=== PATIENT | female | born 1960 | race Caucasian/White ===

== ENCOUNTER 2021-11-25 07:52 | Outpatient (CLI) | payer MEDICAID, SELFPAY ==
[2021-11-25 10:24] LABS: Basophils Absolute Auto 0.02 K/uL (0.00-0.30); Basophils Percent Auto 0.3 % (0.0-3.0); Eosinophils Absolute Auto 0.02 K/uL (0.00-0.50); Eosinophils Percent Auto 0.3 % (0.0-7.0); Hemoglobin* 9.3 gm/dL (12.0-16.0); Immature Granulocytes Abs Auto 0.02 K/uL (0.00-0.30); Lymphocytes Percent Auto 9.8 % (20-44); Mean Corpuscular HGB Conc 32 gm/dL (32-36); Mean Corpuscular Hemoglobin 32 pg (26-34); Mean Corpuscular Volume 99 fL (80-100); Monocytes Percent Auto 8.9 % (0.0-11.0); Neutrophils Percent Auto 80.4 % (42.0-72.0); Platelet Count* 374 K/uL (140-440); RDW Coefficient of Variation % 13.4 % (11.5-15.5); Red Blood Count 2.93 m/uL (4.00-5.20); White Blood Count* 7.87 K/uL (4.50-11.00)
[2021-11-25 10:28] LABS: Slide Review Reflex No
[2021-11-25 10:37] LABS: Hemoglobin A1C* 5.41 % (0-5.6)
[2021-11-25 10:47] LABS: Lactate* 1.1 mmol/L (0.5-1.9)
[2021-11-25 11:02] LABS: Chloride* 101 mmol/L (96-114); Potassium* 3.8 mmol/L (3.6-5.1); Sodium* 136 mmol/L (135-149)
[2021-11-25 11:04] LABS: Creatinine* 0.8 mg/dL (0.5-1.5); Estimated Glomerular Filt Rate 83 ml/min
[2021-11-25 11:05] LABS: Blood Urea Nitrogen* 16 mg/dL (7-30); Calcium* 10.5 mg/dL (8.4-10.6); Carbon Dioxide* 25 mmol/L (20-32); Glucose* 115 mg/dL (60-115)
[2021-11-25 11:08] LABS: C Reactive Protein* 8.4 mg/dL (0.5-1.0)
[2021-11-26 22:44] LABS: Prealbumin 12.6 mg/dL (20.0-40.0)
[2021-11-28 06:58] LABS: Zinc, Serum/Plasma 58.1 ug/dL (60.0-120.0)
== END 2021-11-25 07:53 | disposition home or self-care (01) ==
LOC: WOUND 07:55
PROVIDERS: Visit Provider Nurse Practitioner Family
DX: L02.31 Cutaneous abscess of buttock (principal); L02.415 Cutaneous abscess of right lower limb
CPT/HCPCS: 11043; 11046; 36415; 72193; 80048; 82728; 83036; 83605; 84134; 84630; 85025; 86140; 87070; 87186; 99213; Q9967

== ENCOUNTER 2021-11-26 09:15 | Day surgery (SDC) | payer MEDICAID, SELFPAY ==
[2021-11-26] VITALS (26 sets, daily range): BP systolic 106–141; BP diastolic 57–90; PULSE 79–99; RESP 14–20; TEMP 36.3–36.8; O2SAT 95–100; BMI 43.1
[2021-11-26] MEDS: SODIUM CHLORIDE 0.9 % (FLUSH) 10 ML SYRINGE IVF (09:50)
[2021-11-26] MEDS: LACTATED RINGERS 1000 ML 1,000 ML 100 ML IV ×2 (09:52→13:37)
[2021-11-26] MEDS: CLINDAMYCIN 900 MG/6 ML VIAL IVPB (11:10)
[2021-11-26] MEDS: BUPIVACAINE LIPOSOME 133 MG/10 ML INJ INFILTRATI (12:23)
--- NOTE | 2021-11-26 12:50 | W.ANESCHARGE ---
Anesthesia Charges Start Date/Time Anesthesia Start Date: 11/26/21 Anesthesia Start Time: 11:03 Stop Date/Time Anesthesia Stop Date: 11/26/21 Anesthesia Stop Time: 12:51 Summary Emergency: No
--- NOTE | 2021-11-26 12:52 | W.ANESCHARGE ---
Anesthesia Charges Start Date/Time Anesthesia Start Date: 11/26/21 Anesthesia Start Time: 11:03 Stop Date/Time Anesthesia Stop Date: 11/26/21 Anesthesia Stop Time: 12:51 Summary Emergency: No
[2021-11-26] MEDS: fentaNYL 100 MCG/2 ML inj 50 MCG IVP ×2 (12:55→13:12)
[2021-11-26] MEDS: HYDROmorphone 0.5 mg/0.5 ml inj IVP ×2 (12:57→14:42)
--- NOTE | 2021-11-26 12:58 | P.GSOP_ITS ---
Operative Note Date of procedure: 11/26/21 Type of Procedure: 1. Right hip/buttocks wound exploration. 2. Removal of retained sponges x2. 3. Excisional debridement of subcutaneous fat 28 x 15 x 5 cm. 4. Partial wound closure. 5. VAC VIA placement. Procedure Description: After discussing the risks and benefits of the procedure, the patient signed informed consent.? The operative site was marked and the patient was brought to the operating room and placed on the operating table in supine position.? Care was taken to pad the patient's pressure points.??Spinal anesthesia was administered. Patient was then sedated by Anesthesia.? The operative site was t hen prepped and draped in the usual sterile fashion.? A time-out was then performed. The chronic wound opening in the right buttocks was explored bluntly with a finger and the skin overlying the entire tunnel extending from the right buttocks to the right hip wound was opened with cautery. The skin was incised with cautery and subcutaneous fat was then divided with cautery as well. Two gauze sponges were removed from the center of the tunnel. Pictures were taken and placed into the patient's chart. The gauze sponges had appearance of 4 x 4 gauze and not Ray-Shankar surgical sponges. The entire wound tract was then sharply debrided with a curette and cautery. The area of debridement was measuring 28 cm x 4 cm wide x 5 cm deep. Majority of debrided tissue was hypergranulation tissue. There was no evidence of an abscess or purulence once the retained sponges were removed. Debridement was carried down to the muscle fascia which appeared to be normal with good blood supply. The tunnel itself was deep to the skin and 3 cm of subcutaneous fat. The right buttocks and right hip skin openings were then debrided with cautery down to bleeding fat in order to remove some of the firm scar tissue. The wound was then irrigated with normal saline. Exparel was injected into subcutaneous fat and muscle fascia. The incision was then partially closed with 2-0 nylon mattress sutures leaving the 2 original skin openings and the central skin opening for better access to the wound tunnel. This created 3 separate wound openings. Vac sponge was then used to pack the 3 skin openings. Three separate VAC sponges were placed into 3 separate wounds. Adhesive plastic was then placed over the VAC sponges and with suction was seen at the sponges. All counts were correct in the end of the case. Patient tolerated this procedure well and was transferred to PACU in stable condition. ? Findings: Two retained gauze sponges were removed from the middle of the tunnel. The entire tunnel was opened and debrided. The tunnel was then partially closed creating through separate wound openings. Anesthesia: MAC and spinal Surgeon: Radha Feldman MD Estimated blood loss (mL): 25 Condition: stable Disposition: PACU
--- NOTE | 2021-11-26 13:22 | SUR.PHASEI ---
PT CAME TO PACU IN SIGNIFICANT PAIN, WOUND VAC INTACT , BUTTOCK SITE INTACT, NO DRAINAGE NOTED PT REPOSITIONED ON LEFT SIDE OFF BUTTOCK AREA ICE APPLIED TO SITE AND PILLOWS SUPPORTING PT IV PAIN MEDS GIVEN PER ORDER PT FINALLY RESTING AT THIS TIME
[2021-11-26] MEDS: HYDROCODONE-ACETAMIN 5-325 MG 1 TAB PO ×2 (17:54→20:48)
--- NOTE | 2021-11-26 18:55 | PC.NURSE ---
End of shift: Patient pleasant and cooperative, arrived to the floor at 1450. Patient vitally stable, lungs clear, BS WNL, IV running 75 of LR in right hand. Patient has rated pain at most 8/10 and low 6/10, 0.5 morphine given once, and 1 tab of norco given once. Patient tolerating regular diet, and drinking fluids, patient has not yet urinated. Right Buttock surgical incision C/D/I, wound vac is suctioning.
[2021-11-26] MEDS: SODIUM CHLORIDE 0.9 % (FLUSH) 10 ML SYRINGE 5 ML IVF (20:49)
[2021-11-26] MEDS: PHENobarbitaL 32.4 MG TABLET 129.6 MG PO (20:49)
[2021-11-27 03:00] VITALS: BP 104/52; PULSE 96; RESP 16; TEMP 36.7; O2SAT 100
[2021-11-27] MEDS: HYDROCODONE-ACETAMIN 5-325 MG 1 TAB PO ×2 (05:59→11:59)
--- NOTE | 2021-11-27 06:32 | PC.NURSE ---
Alert and oriented x4. On room air and satting fine. Vitals stable overnight. Pain managed with [place] x2. Up and ambulating in the room independently using a walker. Wound vac dressing intact. Wound vac suctioning and working fine.Remains afebrile. Up to use the bathroom x2; voiding fine
[2021-11-27 07:00] VITALS: BP 122/71; PULSE 97; RESP 18; TEMP 36.6; O2SAT 99
[2021-11-27] MEDS: CETIRIZINE HCL 10 MG TABLET PO (09:27)
[2021-11-27] MEDS: PHENobarbitaL 32.4 MG TABLET 64.8 MG PO (09:27)
[2021-11-27] MEDS: CALCIUM CARBONATE 500 MG TABLET PO (09:28)
[2021-11-27] MEDS: SODIUM CHLORIDE 0.9 % (FLUSH) 10 ML SYRINGE 5 ML IVF (09:28)
--- NOTE | 2021-11-27 10:04 | PM.DS1 ---
DS: Providers Provider Date Seen: 11/27/21 Primary care physician: Not a Local Provider Attending Physician on discharge: Radha Feldman MD DS: Diagnosis Discharge Diagnosis (1) Unspecified open wound, right hip, initial encounter: Status: Acute DS: Summary Hospital Course Hospital Course: 61-year-old female was admitted to the hospital for observation after she underwent right hip / buttocks wound exploration, debridement, partial wound closure and VAC placement. Patient did well overnight. Her pain was controlled with p.o. medications. Her VAC suction was working well. She was tolerating regular diet. Time Spent with Patient Time attestation: Total time spent providing and/or coordinating discharge services: Exam Narrative: Exam Narrative: Right hip/ buttocks wound with VAC sponge in place with suction in the sponge. There is mild erythema around the incision from patient's sitting on it. Const: Vital Signs, click to edit/add: Vital Signs - 24 hr 11/26/21 12:49 11/26/21 12:55 11/26/21 13:00 Temperature 98.0 F Pulse Rate 91 85 83 Pulse Rate [Pulse Oximeter] Respiratory Rate 20 20 20 Blood Pressure 111/90 H 113/69 121/76 Blood Pressure [Le ft Arm] Blood Pressure [Ri ght Arm] Pulse Oximetry 98 100 100 Oxygen Delivery Me thod Room Air Room Air Room Air 11/26/21 13:05 11/26/21 13:10 11/26/21 13:15 Temperature 98.0 F 98.0 F 97.7 F Pulse Rate 83 81 83 Pulse Rate [Pulse Oximeter] Respiratory Rate 20 20 20 Blood Pressure 113/75 123/74 110/64 Blood Pressure [Le ft Arm] Blood Pressure [Ri ght Arm] Pulse Oximetry 97 95 100 Oxygen Delivery Me thod Room Air Room Air Room Air 11/26/21 13:20 11/26/21 13:25 11/26/21 13:30 Temperature 98.1 F Pulse Rate 81 79 81 Pulse Rate [Pulse Oximeter] Respiratory Rate 20 16 16 Blood Pressure 119/71 108/70 120/69 Blood Pressure [Le ft Arm] Blood Pressure [Ri ght Arm] Pulse Oximetry 95 97 97 Oxygen Delivery Me thod Room Air Room Air Room Air 11/26/21 13:35 11/26/21 13:40 11/26/21 14:01 Temperature 98.1 F 98 F Pulse Rate 85 89 89 Pulse Rate [Pulse Oximeter] Respiratory Rate 16 16 14 Blood Pressure 118/70 122/64 Blood Pressure [Le ft Arm] 106/74 Blood Pressure [Ri ght Arm] Pulse Oximetry 100 100 Oxygen Delivery Me thod Room Air Room Air Room Air 11/26/21 14:00 11/26/21 14:15 11/26/21 14:30 Temperature 98.1 F 98.2 F 98.3 F Pulse Rate Pulse Rate [Pulse Oximeter] 83 86 84 Respiratory Rate 14 14 14 Blood Pressure Blood Pressure [Le ft Arm] 123/75 115/71 129/77 Blood Pressure [Ri ght Arm] Pulse Oximetry 99 97 97 Oxygen Delivery Me thod Room Air Room Air Room Air 11/26/21 14:49 11/26/21 15:00 11/26/21 15:15 Temperature 97.8 F 98.1 F Pulse Rate Pulse Rate [Pulse Oximeter] 85 86 Respiratory Rate 14 14 14 Blood Pressure Blood Pressure [Le ft Arm] 123/74 128/70 Blood Pressure [Ri ght Arm] Pulse Oximetry 100 96 Oxygen Delivery Me thod Room Air Room Air 11/26/21 15:45 11/26/21 16:49 11/26/21 17:49 Temperature 97.7 F 97.4 F L 97.9 F Pulse Rate Pulse Rate [Pulse Oximeter] 86 85 88 Respiratory Rate 14 14 14 Blood Pressure Blood Pressure [Le ft Arm] 115/64 109/57 L 130/75 Blood Pressure [Ri ght Arm] Pulse Oximetry 99 99 100 Oxygen Delivery Me thod Room Air Room Air Room Air 11/26/21 18:50 11/26/21 19:45 11/26/21 22:30 Temperature 98.2 F 98.1 F Pulse Rate Pulse Rate [Pulse Oximeter] 88 89 89 Respiratory Rate 14 14 14 Blood Pressure Blood Pressure [Le ft Arm] 126/71 127/66 Blood Pressure [Ri ght Arm] Pulse Oximetry 100 100 Oxygen Delivery Me thod Room Air Room Air 11/26/21 23:00 11/27/21 03:00 11/27/21 07:00 Temperature 98.1 F 98.1 F Pulse Rate Pulse Rate [Pulse Oximeter] 81 96 97 Respiratory Rate 16 16 18 Blood Pressure Blood Pressure [Le ft Arm] 141/65 H 104/52 L Blood Pressure [Ri ght Arm] Pulse Oximetry 100 100 Oxygen Delivery Me thod Room Air Room Air 11/27/21 07:00 Temperature 97.9 F Pulse Rate Pulse Rate [Pulse Oximeter] 97 Respiratory Rate 18 Blood Pressure Blood Pressure [Le ft Arm] Blood Pressure [Ri ght Arm] 122/71 Pulse Oximetry 99 Oxygen Delivery Me thod Room Air Discharge Plan Discharge Disposition: Home, Self-Care Discharging Surgeon: Radha Feldman Follow-Up Appointment: wound clinic next Mon(already made) Prescriptions: New hydrocodone-acetaminophen 5-325 mg tablet 1 - 2 tab PO Q6H PRN (Reason: pain) Qty: 30 0RF Continued acetaminophen 500 mg tablet 1,000 mg PO Q8H PRN calcium carbonate [Calcium 600] 600 mg calcium (1,500 mg) tablet 600 mg PO DAILY cetirizine 10 mg tablet 10 mg PO DAILY multivitamin Tablet 1 tab PO DAILY phenobarbital 64.8 mg tablet 64.8 mg PO QAM phenobarbital 64.8 mg tablet 129.6 mg PO HS cholecalciferol (vitamin D3) 50 mcg (2,000 unit) capsule 50 mcg PO DAILY Discontinued lidocaine HCl 2 % jelly 1 applic topical DAILY Rx Instructions: FOR WOUND VAC AND DRESSING CHANGES Activity Level: Activity as Tolerated Discharge Diet: Regular Patient Instructions: Deep Sedation (DC), Incision and Drainage (DC) Additional Instructions: VAC changes with home health nurse starting on Monday. Fax order to [phone]. Wound clinic apt on Mon at 230 pm. REinforce VAC dressing as needed if VAC leak is detected. Forms: Work/Release Restrictions Follow-up: Provider,Not a Local [Primary Care Provider] - Discharge Orders: Discharge Order (Routine); Ordered 11/27/21 Ordered By: Radha Feldman
[2021-11-27 11:00] VITALS: BP 165/99; PULSE 98; RESP 16; TEMP 36.8; O2SAT 98
--- NOTE | 2021-11-27 13:45 | PC.NURSE ---
Discharge: Patient pleasant and cooperative. Patient vitally stable, lungs clear, BS WNL, IV removed catheter intact. Patient rates pain at most 5/10 2 norco given once by this curriculum writer. Patient tolerating regular diet, urinating, and had 1 moderate hard BM. Patient's wound is C/D/I, no odor or leakage. Vacuum is suctioning and draining sersanguinous fluid. Patient independent in room with walker. Patient signed belongings sheet and discharge form. Patient had no further questions regarding discharge instructions and information regarding wound VAC. Patient left the floor at 1337 by wheelchair to home with belongings.
--- NOTE | 2021-11-28 12:27 | PC.NURSE ---
Patient called M/S today stating that her canister filled and the new canister she changed to is now half full. Discussed concern with Dr. Feldman who gave the following instructions: If wound vac loses suction before nighttime, patient should come to the ED for wet to dry dressing change. If wound vac loses suction during night, patient is ok to wait until home care arrives at 0800 Monday morning. Explained to patient, she understands and has no further questions. Med/Surg number given to patient to call with any questions/concerns.
== END 2021-11-27 13:37 | disposition home or self-care (01) ==
LOC: OR 09:41 → MEDSURG 12:47
PROVIDERS: Visit Provider Surgery
PROC: (CPT 10120; principal; 2021-11-26 10:30)
DX: S31.819A Unspecified open wound of right buttock, initial encounter (principal); S71.001A Unspecified open wound, right hip, initial encounter; L02.31 Cutaneous abscess of buttock; M79.5 Residual foreign body in soft tissue; B96.4 Proteus (mirabilis) (morganii) as the cause of diseases classified elsewhere
CPT/HCPCS: 10120; 11042; 11045; 00300; A9270; C9290; J1170; J2250; J2370; J2400; J2704; J3010; J3490; J7120; S0077

== ENCOUNTER 2021-11-29 13:18 | Emergency (ER) | payer MEDICAID, SELFPAY ==
[2021-11-29 14:05] VITALS: BP 146/76; PULSE 98; RESP 20; TEMP 36.6; O2SAT 99; BMI 40.7
--- NOTE | 2021-11-29 14:52 | ED_ITS ---
HPI - General Adult General Date Seen: 11/29/21 Chief complaint: Laceration/Wound Stated complaint: Wound change Time Seen by Provider: 11/29/21 14:28 Source: patient, family and RN notes reviewed Mode of arrival: ambulatory Limitations: no limitations History of Present Illness HPI narrative: This 61-year-old female is here at request of clinic for wound management. Wound clinic did not have orders, her home healthcare nurse family was willing to do a wet to dry dressing this afternoon but there were no orders reportedly. This patient has an infected wound that initially had surgery in August per report. Our surgeon Dr. Feldman debrided this wound this past Monday, placed a wound VAC that is temporary. There was some difficulty or the order for the ongoing wound VAC did not get placed until today. I did talk to Dr. Cortés later and she had agreed to get the order for the wound VAC in. Per Ashanti the home care nurse it is not in yet. She has a temporary wound VAC on right now but this only has 2 canisters with it and this wound VAC quit working at 4:00 a.m.. The wound clinic does not have any nurses to do a dressing change started they have any orders today. Patient does have some ongoing pain but not out of context of the pain she has been having. There have been no fevers. There has been some confusion as to where this patient should go in she ultimately was di rected to the ER. Unfortunately we have a high volume, high acuity patients and she has had to do some waiting. We tried to expedite her cares quickly as we could. And also spoken with the wound clinic, they do have her in for follow-up appointment at 11:00 a.m. tomorrow morning to continue with wet-to-dry dressings as the permanent wound VAC is not in yet. Related Data Home Medications Medication Instructions Recorded Confirmed acetaminophen 500 mg tablet 1,000 mg PO Q8H PRN 11/25/21 11/26/21 calcium carbonate 600 mg calcium 600 mg PO DAILY 11/25/21 11/26/21 (1,500 mg) tablet (Calcium) cetirizine 10 mg tablet 10 mg PO DAILY 11/25/21 11/26/21 cholecalciferol (vitamin D3) 50 50 mcg PO DAILY 11/25/21 11/26/21 mcg (2,000 unit) capsule multivitamin 1 tab PO DAILY 11/25/21 11/26/21 phenobarbital 64.8 mg tablet 64.8 mg PO QAM 11/25/21 11/26/21 phenobarbital 64.8 mg tablet 129.6 mg PO HS 11/25/21 11/26/21 Previous Rx's Medication Instructions Recorded hydrocodone 5 mg-acetaminophen 325 1 - 2 tab PO Q6H PRN pain #30 tabs 11/27/21 mg tablet arginine 7 gram-glutamine 7 1 ea PO DAILY #30 ea 12/02/21 gram-calcium HMB 1.5 gram oral powder pack (Justin) lidocaine HCl 2 % mucosal solution 1 applic topical .EOD #100 mL 12/02/21 Allergies Allergy/AdvReac Type Severity Reaction Status Date / Time amoxicillin [From Augmentin] Allergy Verified 11/26/21 09:33 clavulanic acid Allergy Verified 11/26/21 09:33 [From Augmentin] lamotrigine [From Lamictal] Allergy Verified 11/26/21 09:33 phenytoin [From Dilantin] Allergy Verified 11/26/21 09:33 Review of Systems Narrative: As per HPI [facility] Medical History (Updated 12/02/21 @ 13:32 by Ashley Cortés MD) H/O drainage of abscess Hypertension Seizure disorder Unspecified open wound, right hip, initial encounter Surgical History (Updated 11/25/21 @ 14:50 by Ashley Cortés MD) H/O: myomectomy Hx of cholecystectomy S/P surgical removal of pilonidal cyst Social History (Updated 11/25/21 @ 14:51 by Ashley Cortés MD) Narrative: The patient does not smoke. She does not drink alcohol. She was previously living independently. She is now staying in a TCU in [place] and is hoping to discharge to stay with her sister in [place]. Smoking Status: Never smoker How often do you have a drink containing alcohol: monthly or less AUDIT-C Alcohol total score: 1 Non-prescribed substance use: denies use Caffeine: No Are you using contraception or practicing any form of control: No service: No Exam Const: Vital Signs, click to edit/add: Vital Signs - 24 hr 11/29/21 14:05 Temperature 97.8 F Pulse Rate [Pulse Oximeter] 98 Respiratory Rate 20 Blood Pressure [Ri ght Forearm] 146/76 H Pulse Oximetry 99 Oxygen Delivery Me thod Room Air Documenting provider has reviewed patient's vital signs: yes Other: Has nonfunctioning wound VAC in place. Neck & C-Spine: Common normals: no JVD Resp: Common normals: normal respiratory effort, no retractions, no use of accessory muscles and clear to auscultation bilaterally Auscultation: clear to auscultation bilaterally Cardio: Common normals: no JVD, regular rate, regular rhythm, S1 normal heart sound, S2 normal heart sound, no gallops, no clicks and no murmurs Rate: regular rate Rhythm: regular rhythm Heart sounds: S1 normal and S2 normal Course Course Hospital Course: Per discussion with Dr. Cortés, will take down the temporary wound VAC in place a wet-to-dry dressing. She will follow up in Wound Clinic tomorrow morning at 11:00 a.m.. Vital Signs Vital signs: Initial Vital Signs Temperature 97.8 F 11/29/21 14:05 Temperature Source Temporal Artery Scan 11/29/21 14:05 Pulse Rate 98 11/29/21 14:05 Pulse Rhythm 11/29/21 14:05 Respiratory Rate 20 11/29/21 14:05 Blood Pressure 146/76 H 11/29/21 14:05 Blood Pressure Mean 99 11/29/21 14:05 Blood Pressure Position Supine 11/29/21 14:05 Pulse Oximetry 99 11/29/21 14:05 Oxygen Delivery Method 11/29/21 14:05 Vital Signs Temperature 97.8 F 11/29/21 14:05 Pulse Rate 98 11/29/21 14:05 Respiratory Rate 20 11/29/21 14:05 Blood Pressure 146/76 H 11/29/21 14:05 Pulse Oximetry 99 11/29/21 14:05 Oxygen Delivery Method 11/29/21 14:05 Temperature 97.8 F 11/29/21 15:59 Pulse Rate 98 11/29/21 15:59 Respiratory Rate 20 11/29/21 15:59 Blood Pressure 146/76 H 11/29/21 15:59 Pulse Oximetry 99 11/29/21 14:05 Oxygen Delivery Method 11/29/21 14:05 Critical Care Time Critical Care Time Critical Care Time: No Discharge Plan Discharge Clinical Impression: Encounter for management of vacuum-assisted closure (VAC) of wound Condition: Stable Additional Instructions: If this dressing soaks through, can replace the outer thicker portion and leave the internal wet dressing there until tomorrow. Follow up in the Wound Clinic tomorrow morning at 11:00 a.m.. Continue with postoperative instructions as per your surgeon otherwise. Prescriptions: No Action acetaminophen 500 mg tablet 1,000 mg PO Q8H PRN calcium carbonate [Calcium 600] 600 mg calcium (1,500 mg) tablet 600 mg PO DAILY cetirizine 10 mg tablet 10 mg PO DAILY multivitamin Tablet 1 tab PO DAILY phenobarbital 64.8 mg tablet 64.8 mg PO QAM phenobarbital 64.8 mg tablet 129.6 mg PO HS cholecalciferol (vitamin D3) 50 mcg (2,000 unit) capsule 50 mcg PO DAILY hydrocodone-acetaminophen 5-325 mg tablet 1 - 2 tab PO Q6H PRN (Reason: pain) Qty: 30 0RF Justin 7-7-1.5 gram powder in packet 1 ea PO DAILY Qty: 30 3RF lidocaine HCl 2 % solution 1 applic topical .EOD Qty: 100 3RF Rx Instructions: Apply 10ml (total) on vac sponges with dressing change. Peel back outer dressing, apply gel and allow to sit on the sponge for 5 minutes before removing. Follow Up/Referrals: Provider,Not a Local [Primary Care Provider] - Stand Alone Forms: [facility] Info Instructions
--- NOTE | 2021-11-29 15:57 | ED.NURSE ---
Wound care, wet-to-dry dressing done per Lesvia, Surgery Clinic RN. Dr. Cortés at bedside. Extra dressing supplies provided to Pt. Pt aware of apt with wound clinic at 1100 tomorrow morning.
[2021-11-29 15:59] VITALS: BP 146/76; PULSE 98; RESP 20; TEMP 36.6
== END 2021-11-29 15:59 | disposition home or self-care (01) ==
LOC: ED 15:53
PROVIDERS: Emergency Provider Family Medicine
DX: Z45.89 Encounter for adjustment and management of other implanted devices (principal)
CPT/HCPCS: 99282; 99283

== ENCOUNTER 2021-11-30 10:52 | Outpatient (CLI) | payer MEDICAID, SELFPAY | END 2021-11-30 10:53 | disposition home or self-care (01) | LOC: WOUND 10:52 | PROVIDERS: Visit Provider Nurse Practitioner Family | DX: L02.31 Cutaneous abscess of buttock (principal) | CPT/HCPCS: 99213 ==

== ENCOUNTER 2021-12-01 14:29 | Outpatient (CLI) | payer MEDICAID, SELFPAY | END 2021-12-01 14:30 | disposition home or self-care (01) | LOC: WOUND 14:29 | PROVIDERS: Visit Provider Surgery | DX: L02.31 Cutaneous abscess of buttock (principal) | CPT/HCPCS: 99214 ==

== ENCOUNTER 2021-12-02 10:32 | Outpatient (CLI) | payer MEDICAID, SELFPAY | END 2021-12-02 10:33 | disposition home or self-care (01) | PROVIDERS: Visit Provider Nurse Practitioner Family | DX: L02.31 Cutaneous abscess of buttock (principal); E60 Dietary zinc deficiency; E66.9 Obesity, unspecified | CPT/HCPCS: 97606 ==

== ENCOUNTER 2021-12-08 14:10 | Outpatient (CLI) | payer MEDICAID, SELFPAY | END 2021-12-08 14:11 | disposition home or self-care (01) | LOC: WOUND 14:10 | PROVIDERS: Visit Provider Surgery | DX: T81.31XA Disruption of external operation (surgical) wound, not elsewhere classified, initial encounter (principal) | CPT/HCPCS: 11042; 97605 ==

== ENCOUNTER 2021-12-15 13:55 | Outpatient (CLI) | payer MEDICAID, SELFPAY | END 2021-12-15 13:56 | disposition home or self-care (01) | LOC: WOUND 13:55 | PROVIDERS: Visit Provider Surgery | DX: L02.31 Cutaneous abscess of buttock (principal); E60 Dietary zinc deficiency; E66.9 Obesity, unspecified | CPT/HCPCS: 97605; 99214 ==

== ENCOUNTER 2021-12-22 14:08 | Outpatient (CLI) | payer MEDICAID, SELFPAY | END 2021-12-22 14:09 | disposition home or self-care (01) | LOC: WOUND 14:09 | PROVIDERS: Visit Provider Surgery | DX: L02.31 Cutaneous abscess of buttock (principal); E60 Dietary zinc deficiency | CPT/HCPCS: 11042; 11045; 97605 ==

== ENCOUNTER 2021-12-29 13:58 | Outpatient (CLI) | payer MEDICAID, SELFPAY | END 2021-12-29 13:59 | disposition home or self-care (01) | LOC: WOUND 13:58 | PROVIDERS: Visit Provider Surgery | DX: L02.31 Cutaneous abscess of buttock (principal); E60 Dietary zinc deficiency | CPT/HCPCS: 97605 ==

== ENCOUNTER 2022-01-05 14:24 | Outpatient (CLI) | payer MEDICAID, SELFPAY | END 2022-01-05 14:25 | disposition home or self-care (01) | LOC: WOUND 14:24 | PROVIDERS: Visit Provider Surgery | DX: L02.31 Cutaneous abscess of buttock (principal); E60 Dietary zinc deficiency | CPT/HCPCS: 11042; 97605 ==

== ENCOUNTER 2022-01-12 13:46 | Outpatient (CLI) | payer MEDICAID, SELFPAY | END 2022-01-12 13:47 | disposition home or self-care (01) | LOC: WOUND 13:46 | PROVIDERS: Visit Provider Nurse Practitioner Family | DX: T81.31XA Disruption of external operation (surgical) wound, not elsewhere classified, initial encounter (principal); E60 Dietary zinc deficiency | CPT/HCPCS: 11042; 11045; 97605 ==

== ENCOUNTER 2022-01-26 14:00 | Outpatient (CLI) | payer MEDICAID, SELFPAY | END 2022-01-26 14:01 | disposition home or self-care (01) | LOC: WOUND 14:01 | PROVIDERS: Visit Provider Surgery | DX: T81.31XA Disruption of external operation (surgical) wound, not elsewhere classified, initial encounter (principal); E60 Dietary zinc deficiency; E66.9 Obesity, unspecified; Z68.41 Body mass index [BMI] 40.0-44.9, adult | CPT/HCPCS: 97605; 99213 ==

== ENCOUNTER 2022-01-29 17:41 | Inpatient (IN) | payer MEDICAID, SELFPAY ==
[2022-01-29] VITALS (11 sets, daily range): BP systolic 107–139; BP diastolic 37–81; PULSE 95–106; RESP 20–26; TEMP 37.3–37.4; O2SAT 97–100; BMI 31.3; BMI 41.2
--- NOTE | 2022-01-29 18:25 | ED.GENADULT ---
HPI - General Adult General Time Seen by Provider: 18:25 <Fabiana Nicolas MD - Last Filed: 01/29/22 20:22> Date Seen: 01/29/22 <Fabiana Nicolas MD - Last Filed: 01/29/22 20:22> Chief complaint: Weakness <Fabiana Nicolas MD - Last Filed: 01/29/22 20:22> Stated complaint: Weakness and Confussion <Fabiana Nicolas MD - Last Filed: 01/29/22 20:22> Time Seen by Provider: 01/29/22 17:48 <Fabiana Nicolas MD - Last Filed: 01/29/22 20:22> Source: patient, EMS and RN notes reviewed <Fabiana Nicolas MD - Last Filed: 01/29/22 20:22> Mode of arrival: EMS <Fabiana Nicolas MD - Last Filed: 01/29/22 20:22> Limitations: no limitations <Fabiana Nicolas MD - Last Filed: 01/29/22 20:22> History of Present Illness HPI narrative: Patient is a 61-year-old female brought in from home where she resides with her sister for seemingly not being herself today. Her sister noted that she just was not quite right today. She came out of her room with her pajamas without a robe on which is quite unusual. She later noted that her sister did put 2 pair of underwear on. When she was getting ready to come to the hospital, she put her robe on instead of getting dressed. Her sister then helped ir, gave her a short to put on in she put it on over her robe. These are completely unlike her to make these type of clothing errors. She denies any pain at this time. Her sister notes that she seems to be more short of breath. I note her to be breathing more rapidly. Patient denies feeling short of breath. Her sister notes that she will often seem to get winded when she gets up to walk or do activities. She notes her breathing to be more labor just at rest. [facility] Monday of this past week, otherwise is not known to be out of public to have been exposed to anything. They have not noted any fever to date. No nausea vomiting diarrhea, no cough. She has a wound VAC on her right hip lower lateral abdominal area from a chronic wound postsurgically. This wound is a result of a complication from a fall and hospitalization for rhabdomyolysis. Sounds as if there was skin breakdown. She has been going to our wound clinic for ongoing management. Reportedly the nurses were to the house yesterday and assessed the area. Patient is known to have a seizure disorder, hypertension. She has had a cholecystectomy before. <Fabiana Nicolas MD - Last Filed: 01/29/22 20:22> Related Data Home medications: Home Medications Medication Instructions Recorded Confirmed calcium carbonate 600 mg calcium 600 mg PO DAILY 11/25/21 01/30/22 (1,500 mg) tablet (Calcium) cetirizine 10 mg tablet 10 mg PO DAILY 11/25/21 01/30/22 cholecalciferol (vitamin D3) 50 50 mcg PO DAILY 11/25/21 01/30/22 mcg (2,000 unit) capsule multivitamin 1 tab PO DAILY 11/25/21 01/30/22 phenobarbital 64.8 mg tablet 64.8 mg PO QAM 11/25/21 01/29/22 phenobarbital 64.8 mg tablet 129.6 mg PO HS 11/25/21 01/30/22 lisinopril 5 mg tablet 5 mg PO DAILY 01/29/22 01/30/22 <Fabiana Nicolas MD - Last Filed: 01/29/22 20:22> Allergies/adverse reactions: Allergies Allergy/AdvReac Type Severity Reaction Status Date / Time amoxicillin [From Augmentin] Allergy Verified 01/29/22 17:56 clavulanic acid Allergy Verified 01/29/22 17:56 [From Augmentin] lamotrigine [From Lamictal] Allergy Verified 01/29/22 17:56 phenytoin [From Dilantin] Allergy Verified 01/29/22 17:56 <Fabiana Nicolas MD - Last Filed: 01/29/22 20:22> Review of Systems Status of ROS: Reports: 10 or more systems reviewed and unremarkable except as noted in History and below <Fabiana Nicolas MD - Last Filed: 01/29/22 20:22> [facility] Medical History: Medical History (Updated 01/30/22 @ 13:50 by Nate Hess MD) Acute kidney injury H/O drainage of abscess Hypertension Rhabdomyolysis Seizure disorder Unspecified open wound, right hip, initial encounter <Fabiana Nicolas MD - Last Filed: 01/29/22 20:22> Surgical History: Surgical History H/O: myomectomy Hx of cholecystectomy S/P surgical removal of pilonidal cyst <Fabiana Nicolas MD - Last Filed: 01/29/22 20:22> Family History: Family History (Updated 01/30/22 @ 13:44 by Nate Hess MD) Father Lymphoma Renal cancer Brother Melanoma <Fabiana Nicolas MD - Last Filed: 01/29/22 20:22> Social History: Social History (Updated 01/30/22 @ 13:45 by Naet Hess MD) Narrative: The patient does not smoke. She does not drink alcohol. She was living independently prior to her fall in August. She was in a hospital or TCU until the end of September. Since then she has been living with her sister in [place]. She reports this is going well for her. Code status is full. Highest level of school completed/degree received: some college, no degree Smoking Status: Never smoker Do you use any of these nicotine containing products: None Second hand tobacco smoke exposure: No How often do you have a drink containing alcohol: monthly or less AUDIT-C Alcohol total score: 1 Non-prescribed substance use: denies use Caffeine: Yes (COFFEE 4 CUP DAILY) Are you using contraception or practicing any form of control: No service: No <Fabiana Nicolas MD - Last Filed: 01/29/22 20:22> Exam Const: Vital Signs, click to edit/add: Vital Signs - 24 hr 01/29/22 17:50 01/29/22 17:55 01/29/22 18:00 Temperature 99.2 F Pulse Rate 95 96 Pulse Rate [Pulse Oximeter] 98 Respiratory Rate 20 Blood Pressure Blood Pressure [Ri ght Upper Arm] 116/37 L Pulse Oximetry 100 99 99 Oxygen Delivery Me thod Room Air 01/29/22 18:02 01/29/22 18:33 01/29/22 19:20 Temperature Pulse Rate 96 100 Pulse Rate [Pulse Oximeter] Respiratory Rate Blood Pressure 119/59 L 120/48 L Blood Pressure [Ri ght Upper Arm] Pulse Oximetry 100 97 Oxygen Delivery Me thod 01/29/22 19:30 01/29/22 19:32 01/29/22 20:02 Temperature Pulse Rate 104 H 102 H Pulse Rate [Pulse Oximeter] Respiratory Rate Blood Pressure 131/61 107/44 L Blood Pressure [Ri ght Upper Arm] Pulse Oximetry 98 97 Oxygen Delivery Me thod <Fabiana Nicolas MD - Last Filed: 01/29/22 20:22> Vital Signs, click to edit/add: Vital Signs - 24 hr 01/29/22 17:50 01/29/22 17:55 01/29/22 18:00 Temperature 99.2 F Pulse Rate 95 96 Pulse Rate [Pulse Oximeter] 98 Respiratory Rate 20 Blood Pressure Blood Pressure [Ri ght Upper Arm] 116/37 L Pulse Oximetry 100 99 99 Oxygen Delivery Me thod Room Air 01/29/22 18:02 01/29/22 18:33 01/29/22 19:20 Temperature Pulse Rate 96 100 Pulse Rate [Pulse Oximeter] Respiratory Rate Blood Pressure 119/59 L 120/48 L Blood Pressure [Ri ght Upper Arm] Pulse Oximetry 100 97 Oxygen Delivery Me thod 01/29/22 19:30 01/29/22 19:32 01/29/22 20:02 Temperature Pulse Rate 104 H 102 H Pulse Rate [Pulse Oximeter] Respiratory Rate Blood Pressure 131/61 107/44 L Blood Pressure [Ri ght Upper Arm] Pulse Oximetry 98 97 Oxygen Delivery Me thod <Jonn Chawla MD - Last Filed: 01/30/22 13:55> Documenting provider has reviewed patient's vital signs: yes <Fabiana Nicolas MD - Last Filed: 01/29/22 20:22> Common normals: no apparent distress, no limitations and alert <Fabiana Nicolas MD - Last Filed: 12/03/22 20:22> General appearance: cooperative, comfortable, disheveled and ill appearing <Fabiana Nicolas MD - Last Filed: 01/29/22 20:22> Nutritional appearance: overweight <Fabiana Nicolas MD - Last Filed: 01/29/22 20:22> Orientation/consciousness: Yes awake, Yes oriented to person, Yes oriented to place and Yes confused (Do agree with assessment of some mild confusion) <Fabiana Nicolas MD - Last Filed: 01/29/22 20:22> Other: Has a wound VAC on the right lateral buttock area, below this on to her right posterolateral thigh see intense erythematous change, no blistering, no open wounds here. This seems to be obvious source of infection with cellulitis. Find no fluctuant areas. <Fabiana Nicolas MD - Last Filed: 01/29/22 20:22> HENMT: Common normals: normocephalic, head/scalp atraumatic, hearing grossly normal bilaterally, external nose normal, nasal mucous membranes and turbinates normal, moist oral mucous membranes, oropharynx normal, dentition normal and gingiva normal <Fabiana Nicolas MD - Last Filed: 01/29/22 20:22> Head and scalp: normocephalic and atraumatic <Fabiana Nicolas MD - Last Filed: 01/29/22 20:22> Nose: external nose normal and nasal mucous membranes and turbinates normal <Fabiana Nicolas MD - Last Filed: 01/29/22 20:22> Eye: Common normals: PERRL, EOMs intact bilaterally, conjunctivae normal and no scleral icterus <Fabiana Nicolas MD - Last Filed: 01/29/22 20:22> Conjunctiva: conjunctiva(e) normal <MD Vika Herman Last Filed: 01/29/22 20:22> Pupil: PERRL <MD Vika Herman Last Filed: 01/29/22 20:22> Neck & C-Spine: Common normals: full ROM, no lymphadenopathy, supple and no meningeal signs <Fabiana Nicolas MD - Last Filed: 01/29/22 20:22> Chest: Common normals: inspection of chest normal <Fabiana Nicolas MD - Last Filed: 01/29/22 20:22> Resp: Common normals: normal respiratory effort, no retractions, no use of accessory muscles and clear to auscultation bilaterally <Fabiana Nicolas MD - Last Filed: 01/29/22 20:22> Auscultation: clear to auscultation bilaterally <Fabiana Nicolas MD - Last Filed: 01/29/22 20:22> Cardio: Common normals: regular rate, regular rhythm, S1 normal heart sound, S2 normal heart sound, no gallops, no clicks and no murmurs <Fabiana Nicolas MD - Last Filed: 01/29/22 20:22> Rate: regular rate <Fabiana Nicolas MD - Last Filed: 01/29/22 20:22> Rhythm: regular rhythm <Fabiana Nicolas MD - Last Filed: 01/29/22 20:22> Heart sounds: S1 normal and S2 normal <Fabiana Nicolas MD - Last Filed: 01/29/22 20:22> GI: Common normals: Normal to inspection, nondistended, normoactive bowel sounds present, soft to palpation, non-tender, no hepatosplenomegaly and no masses <Fabiana Nicolas MD - Last Filed: 01/29/22 20:22> Palpation: soft and no hepatosplenomegaly <Fabiana Nicolas MD - Last Filed: 01/29/22 20:22> Extremity: Common normals: no calf tenderness and no pedal edema <Fabiana Nicolas MD - Last Filed: 01/29/22 20:22> Neuro: Common normals: CN's II-XII intact bilaterally, moves all extremities, no focal motor deficits and no sensory deficits noted <Fabiana Nicolas MD - Last Filed: 01/29/22 20:22> Sensorium/orientation: awake, alert, oriented to person and oriented to place <Fabiana Nicolas MD - Last Filed: 01/29/22 20:22> Meningeal signs: no meningeal signs <Fabiana Nicolas MD - Last Filed: 01/29/22 20:22> Course Course Hospital Course: Patient has obvious cellulitis. Need to obtain full complement of labs including blood cultures. Will get a chest x-ray given her complaint of shortness of breath but I wonder if the tachypnea is more a symptom of her illness developing. Consideration for thromboembolic disease is being made, D-dimer pending. Will need to treat with antibiotics as soon as we of obtained her labs. Will try to look at her records briefly to see if there is any need to go into more advanced antibiotics beyond something such as Ancef. <Fabiana Nicolas MD - Last Filed: 01/29/22 20:22> Reevaluation(s) Reevaluation #1: Have reviewed with patient and her sister the order for the CT of her pelvis to rule out recurrent abscess in this right buttock area. There is certainly cellulitis. As far as Augmentin, she remembers getting a rash from it. Thus, need to consider her allergic to class of penicillins. She has no history of MRSA. <Fabiana Nicolas MD - Last Filed: 01/29/22 20:22> Time: 19:47 <Fabiana Nicolas MD - Last Filed: 01/29/22 20:22> Vital Signs Vital signs: Initial Vital Signs Temperature 99.2 F 01/29/22 17:50 Temperature Source Temporal Artery Scan 01/29/22 17:50 Pulse Rate 98 01/29/22 17:50 Pulse Rhythm 01/29/22 17:50 Respiratory Rate 20 01/29/22 17:50 Blood Pressure 116/37 L 01/29/22 17:50 Blood Pressure Mean 63 01/29/22 17:50 Blood Pressure Position Supine 01/29/22 17:50 Pulse Oximetry 100 01/29/22 17:50 Oxygen Delivery Method 01/29/22 17:50 Vital Signs Temperature 99.2 F 01/29/22 17:50 Pulse Rate 98 01/29/22 17:50 Respiratory Rate 20 01/29/22 17:50 Blood Pressure 116/37 L 01/29/22 17:50 Pulse Oximetry 100 01/29/22 17:50 Oxygen Delivery Method 01/29/22 17:50 Temperature 98.3 F 01/30/22 11:00 Pulse Rate 94 01/30/22 11:00 Respiratory Rate 18 01/30/22 11:00 Blood Pressure 145/69 H 01/30/22 11:00 Pulse Oximetry 100 01/30/22 11:00 Oxygen Delivery Method 01/30/22 11:00 <Fabiana Nicolas MD - Last Filed: 01/29/22 20:22> Initial Vital Signs Temperature 99.2 F 01/29/22 17:50 Temperature Source Temporal Artery Scan 01/29/22 17:50 Pulse Rate 98 01/29/22 17:50 Pulse Rhythm 01/29/22 17:50 Respiratory Rate 20 01/29/22 17:50 Blood Pressure 116/37 L 01/29/22 17:50 Blood Pressure Mean 63 01/29/22 17:50 Blood Pressure Position Supine 01/29/22 17:50 Pulse Oximetry 100 01/29/22 17:50 Oxygen Delivery Method 01/29/22 17:50 Vital Signs Temperature 99.2 F 01/29/22 17:50 Pulse Rate 98 01/29/22 17:50 Respiratory Rate 20 01/29/22 17:50 Blood Pressure 116/37 L 01/29/22 17:50 Pulse Oximetry 100 01/29/22 17:50 Oxygen Delivery Method 01/29/22 17:50 Temperature 98.3 F 01/30/22 11:00 Pulse Rate 94 01/30/22 11:00 Respiratory Rate 18 01/30/22 11:00 Blood Pressure 145/69 H 01/30/22 11:00 Pulse Oximetry 100 01/30/22 11:00 Oxygen Delivery Method 01/30/22 11:00 <Jonn Chawla MD - Last Filed: 01/30/22 13:55> Medical Decision Making MDM Narrative Medical decision making narrative: I received Ms. Herrera in handoff at change of shift pending CT pelvis and PE protocol CT chest. She had been demonstrating some altered mental status, white count and CRP was elevated and there was concern of cellulitis with sepsis in the setting of chronic wound at the right hip. I did go to talk further with Ms. Herrera and her daughter. Of good energy but did seem a little goofy. Generally erythematous throughout the right hip and low back. Dressing in place. Skin generally hot. Breathing easily. CT imaging did not show apparently significant new changes. PE chest without embolus or other acute abnormality. Ultrasound was pending. I did discuss briefly with our hospitalist for admission however due to time and workload ultimately called to [facility] to assist with admission. <Jonn Chawla MD - Last Filed: 01/30/22 13:55> Lab Data Lab results reviewed: Yes I reviewed the patient's lab results <Jonn Chawla MD - Last Filed: 01/30/22 13:55> Labs: Lab Results 01/29/22 01/29/22 01/29/22 Range/Units 18:04 18:32 19:08 WBC 13.58 H (4.50-11.00) K/uL RBC 3.34 L (4.00-5.20) m/uL Hgb 10.3 L (12.0-16.0) gm/dL Hct 32.2 L (33.0-51.0) % MCV 96 (80-100) fL MCH 31 (26-34) pg MCHC 32 (32-36) gm/dL RDW Coeff of Arslan 13.9 (11.5-15.5) % Plt Count 188 (140-440) K/uL Neut % (Auto) 91.4 H (42.0-72.0) % Lymph % (Auto) 4.8 L (20-44) % [place] % (Auto) 3.5 (0.0-11.0) % Eos % (Auto) 0.0 (0.0-7.0) % Baso % (Auto) 0.1 (0.0-3.0) % Neut # (Auto) 12.40 H (1.7-7.0) K/uL Lymph # (Auto) 0.70 L (0.90-2.90) K/uL [place] # (Auto) 0.50 (0.00-0.90) K/UL Eos # (Auto) 0.00 (0.00-0.50) K/uL Baso # (Auto) 0.00 (0.00-0.30) K/uL Abs Immat Gran (auto) 0.00 (0.00-0.30) K/uL Imm/Tot Granulo (auto) 0.2 % D-Dimer Quant (PE/DVT) (0.00-0.50) ug/ml Sodium (135-149) mmol/L Potassium (3.6-5.1) mmol/L Chloride (96-114) mmol/L Carbon Dioxide (20-32) mmol/L BUN (7-30) mg/dL Creatinine (0.5-1.5) mg/dL Estimated Creat Clear Estimated GFR ml/min Glucose (60-115) mg/dL Lactate (0.5-1.9) mmol/L Calcium (8.4-10.6) mg/dL Total Bilirubin (0.1-1.5) mg/dL AST (12-35) U/L ALT (4-35) U/L Alkaline Phosphatase (40-150) U/L C-Reactive Protein (0.5-1.0) mg/dL NT-Pro-B Natriuret Pep (0-125) PG/mL Total Protein (6.0-8.3) g/dL Albumin (3.3-5.0) g/dL SARS-CoV-2 (PCR) Negative SARS-CoV-2 (Negative) Influenza Type A (PCR) Negative PCR FLU A (Negative) Influenza Type B (PCR) Negative PCR FLU B (Negative) RSV (PCR) Negative PCR RSV (Negative) POC Troponin I 0.01 (0.01-0.04) ng/ml 01/29/22 01/29/22 01/29/22 Range/Units 19:08 19:08 19:08 WBC (4.50-11.00) K/uL RBC (4.00-5.20) m/uL Hgb (12.0-16.0) gm/dL Hct (33.0-51.0) % MCV (80-100) fL MCH (26-34) pg MCHC (32-36) gm/dL RDW Coeff of Arslan (11.5-15.5) % Plt Count (140-440) K/uL Neut % (Auto) (42.0-72.0) % Lymph % (Auto) (20-44) % [place] % (Auto) (0.0-11.0) % Eos % (Auto) (0.0-7.0) % Baso % (Auto) (0.0-3.0) % Neut # (Auto) (1.7-7.0) K/uL Lymph # (Auto) (0.90-2.90) K/uL [place] # (Auto) (0.00-0.90) K/UL Eos # (Auto) (0.00-0.50) K/uL Baso # (Auto) (0.00-0.30) K/uL Abs Immat Gran (auto) (0.00-0.30) K/uL Imm/Tot Granulo (auto) % D-Dimer Quant (PE/DVT) 1.68 H (0.00-0.50) ug/ml Sodium 137 (135-149) mmol/L Potassium 4.2 (3.6-5.1) mmol/L Chloride 110 (96-114) mmol/L Carbon Dioxide 19 L (20-32) mmol/L BUN 24 (7-30) mg/dL Creatinine 0.9 (0.5-1.5) mg/dL Estimated Creat Clear 56.72 Estimated GFR 72 ml/min Glucose 120 H (60-115) mg/dL Lactate 1.5 (0.5-1.9) mmol/L Calcium 9.8 (8.4-10.6) mg/dL Total Bilirubin 0.6 (0.1-1.5) mg/dL AST 22 (12-35) U/L ALT 19 (4-35) U/L Alkaline Phosphatase 96 (40-150) U/L C-Reactive Protein 8.1 H (0.5-1.0) mg/dL NT-Pro-B Natriuret Pep 622 H (0-125) PG/mL Total Protein 7.0 (6.0-8.3) g/dL Albumin 4.1 (3.3-5.0) g/dL SARS-CoV-2 (PCR) (Negative) Influenza Type A (PCR) (Negative) Influenza Type B (PCR) (Negative) RSV (PCR) (Negative) POC Troponin I (0.01-0.04) ng/ml <Fabiana Nicolas MD - Last Filed: 01/29/22 20:22> Lab Results 01/29/22 01/29/22 01/29/22 Range/Units 18:04 18:32 19:08 WBC 13.58 H (4.50-11.00) K/uL RBC 3.34 L (4.00-5.20) m/uL Hgb 10.3 L (12.0-16.0) gm/dL Hct 32.2 L (33.0-51.0) % MCV 96 (80-100) fL MCH 31 (26-34) pg MCHC 32 (32-36) gm/dL RDW Coeff of Arslan 13.9 (11.5-15.5) % Plt Count 188 (140-440) K/uL Neut % (Auto) 91.4 H (42.0-72.0) % Lymph % (Auto) 4.8 L (20-44) % [place] % (Auto) 3.5 (0.0-11.0) % Eos % (Auto) 0.0 (0.0-7.0) % Baso % (Auto) 0.1 (0.0-3.0) % Neut # (Auto) 12.40 H (1.7-7.0) K/uL Lymph # (Auto) 0.70 L (0.90-2.90) K/uL [place] # (Auto) 0.50 (0.00-0.90) K/UL Eos # (Auto) 0.00 (0.00-0.50) K/uL Baso # (Auto) 0.00 (0.00-0.30) K/uL Abs Immat Gran (auto) 0.00 (0.00-0.30) K/uL Imm/Tot Granulo (auto) 0.2 % D-Dimer Quant (PE/DVT) (0.00-0.50) ug/ml Sodium (135-149) mmol/L Potassium (3.6-5.1) mmol/L Chloride (96-114) mmol/L Carbon Dioxide (20-32) mmol/L BUN (7-30) mg/dL Creatinine (0.5-1.5) mg/dL Estimated Creat Clear Estimated GFR ml/min Glucose (60-115) mg/dL Lactate (0.5-1.9) mmol/L Calcium (8.4-10.6) mg/dL Total Bilirubin (0.1-1.5) mg/dL AST (12-35) U/L ALT (4-35) U/L Alkaline Phosphatase (40-150) U/L C-Reactive Protein (0.5-1.0) mg/dL NT-Pro-B Natriuret Pep (0-125) PG/mL Total Protein (6.0-8.3) g/dL Albumin (3.3-5.0) g/dL SARS-CoV-2 (PCR) Negative SARS-CoV-2 (Negative) Influenza Type A (PCR) Negative PCR FLU A (Negative) Influenza Type B (PCR) Negative PCR FLU B (Negative) RSV (PCR) Negative PCR RSV (Negative) POC Troponin I 0.01 (0.01-0.04) ng/ml 01/29/22 01/29/22 01/29/22 Range/Units 19:08 19:08 19:08 WBC (4.50-11.00) K/uL RBC (4.00-5.20) m/uL Hgb (12.0-16.0) gm/dL Hct (33.0-51.0) % MCV (80-100) fL MCH (26-34) pg MCHC (32-36) gm/dL RDW Coeff of Arslan (11.5-15.5) % Plt Count (140-440) K/uL Neut % (Auto) (42.0-72.0) % Lymph % (Auto) (20-44) % [place] % (Auto) (0.0-11.0) % Eos % (Auto) (0.0-7.0) % Baso % (Auto) (0.0-3.0) % Neut # (Auto) (1.7-7.0) K/uL Lymph # (Auto) (0.90-2.90) K/uL [place] # (Auto) (0.00-0.90) K/UL Eos # (Auto) (0.00-0.50) K/uL Baso # (Auto) (0.00-0.30) K/uL Abs Immat Gran (auto) (0.00-0.30) K/uL Imm/Tot Granulo (auto) % D-Dimer Quant (PE/DVT) 1.68 H (0.00-0.50) ug/ml Sodium 137 (135-149) mmol/L Potassium 4.2 (3.6-5.1) mmol/L Chloride 110 (96-114) mmol/L Carbon Dioxide 19 L (20-32) mmol/L BUN 24 (7-30) mg/dL Creatinine 0.9 (0.5-1.5) mg/dL Estimated Creat Clear 56.72 Estimated GFR 72 ml/min Glucose 120 H (60-115) mg/dL Lactate 1.5 (0.5-1.9) mmol/L Calcium 9.8 (8.4-10.6) mg/dL Total Bilirubin 0.6 (0.1-1.5) mg/dL AST 22 (12-35) U/L ALT 19 (4-35) U/L Alkaline Phosphatase 96 (40-150) U/L C-Reactive Protein 8.1 H (0.5-1.0) mg/dL NT-Pro-B Natriuret Pep 622 H (0-125) PG/mL Total Protein 7.0 (6.0-8.3) g/dL Albumin 4.1 (3.3-5.0) g/dL SARS-CoV-2 (PCR) (Negative) Influenza Type A (PCR) (Negative) Influenza Type B (PCR) (Negative) RSV (PCR) (Negative) POC Troponin I (0.01-0.04) ng/ml <Jonn Chawla MD - Last Filed: 01/30/22 13:55> Critical Care Time Critical Care Time Critical Care Time: No <Fabiana Nicolas MD - Last Filed: 01/29/22 20:22> Discharge Plan Discharge Clinical Impression: Cellulitis <Fabiana Nicolas MD - Last Filed: 01/29/22 20:22> Patient Disposition: Admitted As Inpatient <Fabiana Nicolas MD - Last Filed: 01/29/22 20:22> Condition: Stable <Fabiana Nicolas MD - Last Filed: 01/29/22 20:22>
--- NOTE | 2022-01-29 18:32 | CRLHL7_ITS ---
For Patients: As a result of the Century Cures Act, medical imaging exams and procedure reports are released immediately into your electronic medical record. You may view this report before your referring provider. If you have questions, please contact your health care provider. INDICATION: [id number]. TECHNIQUE: Chest 1 views. COMPARISON: None. FINDINGS: Cardiovascular and mediastinum: Normal heart size. Prominent right perihilar vasculature. Lungs and pleural spaces: Lungs are clear. No sign of infiltrate or mass. No sign of pleural effusion. No pneumothorax. Bones and soft tissues: No significant findings. IMPRESSION: No acute or significant findings. Dictated by Melvin Becerril MD @ 01/29/2022 7:54:54 PM (Electronically Signed)
[2022-01-29 18:51] LABS: PCR FLU A Negative PCR FLU A (Negative); PCR FLU B Negative PCR FLU B (Negative); PCR RSV Negative PCR RSV (Negative)
--- NOTE | 2022-01-29 18:53 | CRLHL7_ITS ---
For Patients: As a result of the Century Cures Act, medical imaging exams and procedure reports are released immediately into your electronic medical record. You may view this report before your referring provider. If you have questions, please contact your health care provider. INDICATION: Cellulitis of the right buttocks. TECHNIQUE: CT abdomen and pelvis acquired with 95 cc Isovue-300 IV contrast. COMPARISON: November 25, 2021. FINDINGS: Lower chest: Please refer to same-day CT chest for further evaluation. Liver: Mild decreased hepatic attenuation which could suggest steatosis Gallbladder and bile ducts: Cholecystectomy. Pancreas: Unremarkable. No mass or inflammation. Spleen: Unremarkable. Normal in size. No masses. Adrenal glands: Unremarkable. No nodules. Kidneys: Tiny hypodensities in both kidneys, too small to characterize.. No suspicious masses, stones, or hydronephrosis. GI tract: Unremarkable. Normal in caliber. No sign of mass or inflammation. Normal appendix. Vasculature: Abdominal aorta is normal in caliber. Mesenteric arteries are patent. Lymph nodes: No lymphadenopathy. Peritoneum/Abdominal Wall: Re- demonstration of right gluteal subcutaneous wound, similar in size with interval decrease of previously described mottled air filled density, thought to represent gauze. Tiny fat containing umbilical hernia. No sign of mass or infiltration. No free air or significant free fluid. Pelvis: Fibroid uterus. Bones: Degenerative changes of the osseous structures. IMPRESSION: Limited evaluation secondary to technical factors with incomplete visualization of the known right gluteal lesion. Otherwise, Re-demonstration of right gluteal subcutaneous wound, similar in size with interval decrease of previously described model air filled density, thought to represent gauze. Some residual gauze seen in the superficial wound adjacent to the skin. This could represent scar or granulation tissue. Recommend correlation with clinical history and physical examination. No new drainable fluid collections. No acute intra-abdominal/pelvic abnormality. Please note that all CT scans at this facility use dose modulation, iterative reconstruction, and/or weight-based dosing when appropriate to reduce radiation dose to as low as reasonably achievable. Dictated by Melvin Becerril MD @ 01/29/2022 8:53:32 PM (Electronically Signed)
[2022-01-29 18:55] LABS: SARS PCR* Negative SARS-CoV-2 (Negative)
[2022-01-29 19:15] LABS: Lactate* 1.5 mmol/L (0.5-1.9)
[2022-01-29 19:25] LABS: Troponin, Point-of-Care* 0.01 ng/ml (0.01-0.04)
[2022-01-29 19:26] LABS: Basophils Percent Auto 0.1 % (0.0-3.0); Hematocrit 32.2 % (33.0-51.0); Hemoglobin* 10.3 gm/dL (12.0-16.0); Immature Granulocytes Pct Auto 0.2 %; Lymphocytes Percent Auto 4.8 % (20-44); Mean Corpuscular HGB Conc 32 gm/dL (32-36); Mean Corpuscular Hemoglobin 31 pg (26-34); Mean Corpuscular Volume 96 fL (80-100); Monocytes Percent Auto 3.5 % (0.0-11.0); Neutrophils Percent Auto 91.4 % (42.0-72.0); Platelet Count* 188 K/uL (140-440); RDW Coefficient of Variation % 13.9 % (11.5-15.5); Red Blood Count 3.34 m/uL (4.00-5.20); White Blood Count* 13.58 K/uL (4.50-11.00)
[2022-01-29 19:28] LABS: Slide Review Reflex No
[2022-01-29 19:30] LABS: Chloride* 110 mmol/L (96-114)
[2022-01-29 19:31] LABS: Albumin* 4.1 g/dL (3.3-5.0); Potassium* 4.2 mmol/L (3.6-5.1); Sodium* 137 mmol/L (135-149)
[2022-01-29 19:33] LABS: Creatinine* 0.9 mg/dL (0.5-1.5); Est. Creatinine Clearance* 56.72; Estimated Glomerular Filt Rate 72 ml/min
[2022-01-29 19:34] LABS: Alanine Aminotransferase* 19 U/L (4-35); Alkaline Phosphatase* 96 U/L (40-150); Aspartate Amino Transferase* 22 U/L (12-35); Bilirubin Total* 0.6 mg/dL (0.1-1.5); Blood Urea Nitrogen* 24 mg/dL (7-30); Carbon Dioxide* 19 mmol/L (20-32); Glucose* 120 mg/dL (60-115)
[2022-01-29 19:35] LABS: Calcium* 9.8 mg/dL (8.4-10.6)
[2022-01-29 19:37] LABS: C Reactive Protein* 8.1 mg/dL (0.5-1.0)
[2022-01-29 19:41] LABS: D Dimer Quantitative* 1.68 ug/ml (0.00-0.50)
[2022-01-29 19:43] LABS: NT Pro B Type NatriureticPept* 622 PG/mL (0-125)
--- NOTE | 2022-01-29 19:45 | CRLHL7_ITS ---
For Patients: As a result of the Century Cures Act, medical imaging exams and procedure reports are released immediately into your electronic medical record. You may view this report before your referring provider. If you have questions, please contact your health care provider. INDICATION: Elevated D-dimer. TECHNIQUE: CT chest PE was acquired with 95 cc Isovue-300 IV contrast. COMPARISON: None. FINDINGS: Heart and vasculature: Contrast opacification of the pulmonary arterial tree is adequate but not optimal. No sign of moderate to large or central pulmonary embolism. Heart size is normal. Thoracic aorta and pulmonary artery are normal in caliber. Lungs and pleura: No suspicious nodules or infiltrates. No pleural effusions, pleural thickening, or pneumothorax. Lymph nodes/mediastinum: No mediastinal, hilar, or axillary adenopathy. Chest wall: No masses. Upper abdomen: No acute or significant findings. Bones: Unremarkable for age. IMPRESSION: Unremarkable CT of the chest. No pulmonary embolism and the lungs are clear. Please note that all CT scans at this facility use dose modulation, iterative reconstruction, and/or weight-based dosing when appropriate to reduce radiation dose to as low as reasonably achievable. Dictated by González Ocasio MD @ 01/29/2022 8:53:40 PM (Electronically Signed)
--- NOTE | 2022-01-29 19:45 | CRLHL7_ITS ---
For Patients: As a result of the Century Cures Act, medical imaging exams and procedure reports are released immediately into your electronic medical record. You may view this report before your referring provider. If you have questions, please contact your health care provider. INDICATION: Shortness of breath. Elevated D-dimer. TECHNIQUE: Ultrasound venous duplex bilateral lower extremity. Compression venous exam was performed using harmon-scale, color Doppler, and spectral Doppler analysis. COMPARISON: None. FINDINGS: Deep veins: Sonographic imaging demonstrates the right common femoral, deep femoral, superficial femoral, popliteal, posterior tibial and the contralateral right common femoral veins to be fully compressible with normal color Doppler blood flow. Superficial veins: Greater saphenous vein is fully compressible. No popliteal cyst. IMPRESSION: Normal bilateral lower extremity venous ultrasound, no sign of deep venous thrombosis. Dictated by González Ocasio MD @ 01/29/2022 9:48:08 PM (Electronically Signed)
[2022-01-29] MEDS: ONDANSETRON 2 MG/ML inj 4 MG IVP (19:53)
[2022-01-29] MEDS: CEFAZOLIN 2 GM in 0.9 % SODIUM CHLORIDE Mini-bag 100 ML IVPB (20:31)
[2022-01-29] MEDS: 0.9 % SODIUM CHLORIDE 1000 ml 1,000 ML 500 ML IV (20:32)
[2022-01-29] MEDS: diphenhydrAMINE 50 MG/ML inj 25 MG IVP (22:02)
--- NOTE | 2022-01-29 22:07 | W.PC.EDHO ---
Primary Language: Preferred Language: Orientation Status: [] Alert & Oriented [x] Slight Confusion [] Known Dx Dementia Transfers By: [] Assist of 1 [x] Assist of 2 [] Lift Active Medications Generic Name Dose Route Start Last Admin Trade Name Vito PRN Reason Stop Dose Admin Diphenhydramine HCl 25 mg 01/29/22 21:43 01/29/22 22:02 Diphenhydramine 50 Mg/Ml Inj IVP 01/29/22 21:44 25 mg ONCE ONE Administration Discontinued Medications Generic Name Dose Route Start Last Admin Trade Name Vito PRN Reason Stop Dose Admin Sodium Chloride 1,000 mls @ 500 mls/hr 01/29/22 19:54 01/29/22 21:58 0.9 % Sodium Chloride 1000 Ml IV 01/29/22 21:53 Infused .Q2H KEILY Infusion Cefazolin Sodium 2 gm/ Sodium 100 mls @ 200 mls/hr 01/29/22 19:54 01/29/22 21:25 Chloride IVPB 01/29/22 19:55 Infused ONCE ONE Infusion Vancomycin HCl 1,750 mg/ 517.5 mls @ 258.75 mls/hr 01/29/22 19:54 01/29/22 20:31 Sodium Chloride IVPB 01/29/22 19:55 258.75 mls/hr ONCE ONE Administration Protocol Ondansetron HCl 4 mg 01/29/22 19:51 01/29/22 19:53 Ondansetron 2 Mg/Ml Inj IVP 01/29/22 19:52 4 mg ONCE ONE Administration Description of Symptoms ED Triage Present Problem EMS reports pt has been c/o weakness and SOB for Description three days and confusion starting today. Pt lives with sister and sister noticed confusion, per EMS. Pt alert to person and situation. EMS reports pt has wound on right side. Pt had a surgery for this wound at [facility] in [place], but a sponge was left in wound, and then wound vac was placed in August. Female History Patient No Valmy Coma Scale Valmy coma scale total score 14 Oxygen Administration Pulse Oximetry 97 Pulse Oximetry 98 Pulse Oximetry 97 Pulse Oximetry 100 Pulse Oximetry 99 Pulse Oximetry 99 Pulse Oximetry 100 Oxygen Delivery Method Room Air
--- NOTE | 2022-01-29 23:43 | PM.IMCN1 ---
Date of Consult Consult date: 01/29/22 Primary Care Provider: Judy Provider Generic Consult Narrative Narrative: Yarelis Herrera is a 61 year old female [facility] Medical History (Updated 01/29/22 @ 20:22 by Fabiana Nicolas MD) H/O drainage of abscess Hypertension Seizure disorder Unspecified open wound, right hip, initial encounter Surgical History (Updated 11/25/21 @ 14:50 by Ashley Cortés MD) H/O: myomectomy Hx of cholecystectomy S/P surgical removal of pilonidal cyst Social History (Updated 11/25/21 @ 14:51 by Ashley Cortés MD) Narrative: The patient does not smoke. She does not drink alcohol. She was previously living independently. She is now staying in a TCU in [place] and is hoping to discharge to stay with her sister in [place]. Smoking Status: Never smoker Do you use any of these nicotine containing products: None Second hand tobacco smoke exposure: No How often do you have a drink containing alcohol: monthly or less AUDIT-C Alcohol total score: 1 Non-prescribed substance use: denies use Caffeine: No Are you using contraception or practicing any form of control: No service: No Meds Home Medications and Allergies Home Medications Medication Instructions Recorded Confirmed Type acetaminophen 500 mg tablet 1,000 mg PO Q8H PRN 11/25/21 11/26/21 History calcium carbonate 600 mg calcium 600 mg PO DAILY 11/25/21 11/26/21 History (1,500 mg) tablet (Calcium) cetirizine 10 mg tablet 10 mg PO DAILY 11/25/21 11/26/21 History cholecalciferol (vitamin D3) 50 50 mcg PO DAILY 11/25/21 11/26/21 History mcg (2,000 unit) capsule multivitamin 1 tab PO DAILY 11/25/21 11/26/21 History phenobarbital 64.8 mg tablet 64.8 mg PO QAM 11/25/21 01/29/22 History phenobarbital 64.8 mg tablet 129.6 mg PO HS 11/25/21 11/26/21 History lisinopril 5 mg tablet mg 01/29/22 History Allergies Allergy/AdvReac Type Severity Reaction Status Date / Time amoxicillin [From Augmentin] Allergy Verified 01/29/22 17:56 clavulanic acid Allergy Verified 01/29/22 17:56 [From Augmentin] lamotrigine [From Lamictal] Allergy Verified 01/29/22 17:56 phenytoin [From Dilantin] Allergy Verified 01/29/22 17:56 Exam Const: Vital Signs, click to edit/add: Vital Signs - 24 hr 01/29/22 17:50 01/29/22 17:55 01/29/22 18:00 Temperature 99.2 F Pulse Rate 95 96 Pulse Rate [Pulse Oximeter] 98 Respiratory Rate 20 Blood Pressure Blood Pressure [Ri ght Upper Arm] 116/37 L Pulse Oximetry 100 99 99 Oxygen Delivery Me thod Room Air 01/29/22 18:02 01/29/22 18:33 01/29/22 19:20 Temperature Pulse Rate 96 100 Pulse Rate [Pulse Oximeter] Respiratory Rate Blood Pressure 119/59 L 120/48 L Blood Pressure [Ri ght Upper Arm] Pulse Oximetry 100 97 Oxygen Delivery Me thod 01/29/22 19:30 01/29/22 19:32 01/29/22 20:02 Temperature Pulse Rate 104 H 102 H Pulse Rate [Pulse Oximeter] Respiratory Rate Blood Pressure 131/61 107/44 L Blood Pressure [Ri ght Upper Arm] Pulse Oximetry 98 97 Oxygen Delivery Me thod Labs Labs: Short CBC 01/29/22 Range/Units 19:08 WBC 13.58 H (4.50-11.00) K/uL Hgb 10.3 L (12.0-16.0) gm/dL Hct 32.2 L (33.0-51.0) % Plt Count 188 (140-440) K/uL BMP 01/29/22 19:08 Sodium 137 Potassium 4.2 Chloride 110 Carbon Dioxide 19 L BUN 24 Creatinine 0.9 Glucose 120 H Calcium 9.8 Liver Function 01/29/22 Range/Units 19:08 Total Bilirubin 0.6 (0.1-1.5) mg/dL AST 22 (12-35) U/L ALT 19 (4-35) U/L Alkaline Phosphatase 96 (40-150) U/L Albumin 4.1 (3.3-5.0) g/dL Assessment and Plan Assessment and plan (1) Cellulitis: Status: Acute Plan [facility] Hospitalist CONSULTATION NOTE: Reason for consult: Cellulitis HPI: Patient is a pleasant 61-year-old female who presents for worsening erythema and redness surrounding the wound VAC on her right hip. She had initial surgery in August following hospitalization for fall and rhabdomyolysis. She has had a wound VAC for some time and has been previously treated with IV antibiotics for infection at the site. She is feeling generally unwell the last several days. She denies headache or lightheadedness. She denies chest pain but does get a bit short of breath when she is getting up and around. She denies abdominal pain, nausea, vomiting, or diarrhea. She denies any dysuria. She is unaware of any fevers or chills recently. She does follow with wound clinic here. Patient is a non-smoker. She does not drink alcohol or use recreational drugs. We discussed CODE STATUS and she wishes to be a full code Exam (performed via interactive video with assistance of bedside nurse): General: Alert, cooperative, no acute distress HEENT: Pupils reported ERRL, oral mucosa pink and moist without erythema Lungs: Clear to auscultation bilaterally without crackle or wheeze CV: Regular rate and rhythm without loud murmur rub or gallop Abd: Bowel sounds present, denies tenderness and does not exhibit signs of pain with palpation done by bedside nurse Ext: There is a large area of erythema on right hip and buttock which seems to originate near the wound VAC and along prior surgical site, nurse will dennys edge with a marker. Skin: No rashes, bruises or lesions appreciated on gross visualization of exposed skin Neuro: Alert, oriented x 3. CN III -VII, XI, XII grossly intact, moves all extremities without any significant focal deficit appreciated by nurse Assessment and Plan: 1. Cellulitis Patient is a pleasant 61-year-old female admitted for recurrent cellulitis at the surgical site. Given that this is not her first infection I think she should be treated broadly. I will place her on cefepime 2 g every 12 hours[address] We will also place her on vancomycin with pharmacy to dose. Cultures were obtained in the ER and will need to be followed. Surgery will evaluate the patient in the morning. PRNs will be available for pain and nausea. Patient's chronic outpatient medications will need to be continued in the morning and once fully verified. Enoxaparin has been placed for DVT prophylaxis. Patient is a full code. Thank you for including [facility] in the patients care. This service is available for further assistance as requested by your care team by calling [phone].
[2022-01-30] VITALS (10 sets, daily range): BP systolic 124–148; BP diastolic 65–82; PULSE 90–102; RESP 18–20; TEMP 36.8–38.1; O2SAT 97–100
[2022-01-30] MEDS: CEFEPIME HCL 2 GM in 0.9 % SODIUM CHLORIDE Mini-bag 100 ML IVPB (00:59)
[2022-01-30] MEDS: ACETAMINOPHEN 325 MG TABLET PO ×2 (03:30→21:01)
--- NOTE | 2022-01-30 05:43 | PC.NURSE ---
END OF SHIFT NOTE: PT IS PLEASANT AND COOPERATIVE WITH CARES. AMBULATES WITH WALKER, GB, A1. PT IS PERIODICALLY CONFUSED. WOUND VAC TO RIGHT HIP. ERYTHEMA TO RIGHT BUTTOCKS AND RIGHT THIGH, OUTLINED WITH MARKER. SITE IS WARM TO TOUCH. SLIGHTLY ELEVATED TEMP OF 99.4 AND 100.6. CONFUSION HAS IMPROVED. LSCTA.
[2022-01-30] MEDS: ERTAPENEM 1 GM in 0.9 % SODIUM CHLORIDE Mini-bag 100 ML IVPB (08:53)
--- NOTE | 2022-01-30 10:33 | CRLHL7_ITS ---
For Patients: As a result of the Cures Act, medical imaging exams and procedure reports are released immediately into your electronic medical record. You may view this report before your referring provider. If you have questions, please contact your health care provider. Indication: Evaluate for abscess in right thigh Technique: Soft tissue ultrasound Comparison: No comparison Findings: In the right upper thigh medial to the bandage site in area of erythema there is superficial 3.9 x 1.4 x 3.7 centimeter complex hypoechoic collection which may represent abscess/infected fluid collection. This extends to the skin surface. Smaller similar superficial complex hypoechoic area medial aspect the incision measures 1.9 x 1.2 x 2.3 centimeters. In the area of the bandage in the right upper thigh is linear complex collection measuring 4.4 x 0.5 x 1.2 centimeters. Impression: Three similar complex superficial hypoechoic collections which may represent infected fluid collections/abscesses. Dictated by Tasha Reina MD @ 01/30/2022 1:33:55 PM (Electronically Signed)
[2022-01-30] MEDS: CETIRIZINE HCL 10 MG TABLET PO (11:16)
[2022-01-30] MEDS: CALCIUM CARBONATE 500 MG TABLET PO (11:16)
[2022-01-30] MEDS: lisinopriL 5 MG TABLET PO (11:16)
[2022-01-30] MEDS: MULTIVITAMIN/MINERALS 1 TABLET 1 TAB PO (11:17)
[2022-01-30] MEDS: PHENobarbitaL 32.4 MG TABLET 64.8 MG PO (11:24)
--- NOTE | 2022-01-30 13:34 | PM.IMHP1 ---
Hospitalist- H&P: HPI History of Present Illness Date Seen: 01/30/22 Chief complaint: Weakness and Confussion Narrative: Yarelis Herrera is a 61 year old female admitted to the emergency room with one day of acute confusion at home. Patient reports she was in her usual state of health until yesterday when she was quite confused. She lives with her sister and her sister insisted that she come to the emergency room because she was behaving strangely and quite confused. She is not aware of any symptoms of illness prior to this. Significant recent history for an infection in her right flank hip and thigh. This began in August 2019 when she apparently fell at home and was on the floor for a few hours. She developed a large abscess in the right buttock requiring in I and D, 1200 mL of pus was removed. She required a couple more surgeries after that for I&D purposes. She had rhabdomyolysis at that time. She has had a wound VAC in her right flank chronically since then. She has got ongoing wound care through [facility] as well. This is generally been going well for her since her last surgery by her report. She is not aware of any fever. She was hospitalized at [facility] for initial treatment from September 15 to October 11. After that she went to a TCU for rehab and then has been living with her sister in [place] since that time. She has a past history of seizure disorder but she is not aware of having a seizure since about 2007 when there were changes to her medications. She is on chronic phenobarbital for that. She reports no other medications that could be mood altering. She does not drink alcohol. Review of Systems Narrative: She reports things have been going well for her without recurrent injury or fall. She is not aware of seizures or episodes of altered level of consciousness 4 years except last August. She reports that she has been doing well with her sister. She ended ambulates independently sometimes with a cane sometimes without. She has had no fever. She is not having any new hip pain or flank pain. He has been eating and drinking normally. No respiratory problems. No chest pain or abdominal pain. [facility] Medical History (Updated 01/30/22 @ 13:50 by Nate Hess MD) Acute kidney injury H/O drainage of abscess Hypertension Rhabdomyolysis Seizure disorder Unspecified open wound, right hip, initial encounter Surgical History H/O: myomectomy Hx of cholecystectomy S/P surgical removal of pilonidal cyst Family History (Updated 01/30/22 @ 13:44 by Nate Hess MD) Father Lymphoma Renal cancer Brother Melanoma Social History (Updated 01/30/22 @ 13:45 by Nate Hess MD) Narrative: The patient does not smoke. She does not drink alcohol. She was living independently prior to her fall in August. She was in a hospital or TCU until the end of September. Since then she has been living with her sister in [place]. She reports this is going well for her. Code status is full. Highest level of school completed/degree received: some college, no degree Smoking Status: Never smoker Do you use any of these nicotine containing products: None Second hand tobacco smoke exposure: No How often do you have a drink containing alcohol: monthly or less AUDIT-C Alcohol total score: 1 Non-prescribed substance use: denies use Caffeine: Yes (COFFEE 4 CUP DAILY) Are you using contraception or practicing any form of control: No service: No Meds Home Medications and Allergies Home Medications Medication Instructions Recorded Confirmed Type calcium carbonate 600 mg calcium 600 mg PO DAILY 11/25/21 01/30/22 History (1,500 mg) tablet (Calcium) cetirizine 10 mg tablet 10 mg PO DAILY 11/25/21 01/30/22 History cholecalciferol (vitamin D3) 50 50 mcg PO DAILY 11/25/21 01/30/22 History mcg (2,000 unit) capsule multivitamin 1 tab PO DAILY 11/25/21 01/30/22 History phenobarbital 64.8 mg tablet 64.8 mg PO QAM 11/25/21 01/29/22 History phenobarbital 64.8 mg tablet 129.6 mg PO HS 11/25/21 01/30/22 History lisinopril 5 mg tablet 5 mg PO DAILY 01/29/22 01/30/22 History Allergies Allergy/AdvReac Type Severity Reaction Status Date / Time amoxicillin [From Augmentin] Allergy Verified 01/29/22 17:56 clavulanic acid Allergy Verified 01/29/22 17:56 [From Augmentin] lamotrigine [From Lamictal] Allergy Verified 01/29/22 17:56 phenytoin [From Dilantin] Allergy Verified 01/29/22 17:56 Exam Narrative: Exam Narrative: She is alert and appears in no distress. She gives her own history. She still reports some feeling of confusion today but thinks it is better than yesterday. She is able to give fairly good details of events leading up to this hospital stay. Head is without trauma. Eyes normal. Pupils equal round reactive to light. Extraocular movements are full. Oropharynx is normal except for a small airway. Neck is supple without mass or adenopathy. Respirations are clear to auscultation. Cardiovascular: S1, S2, regular rate and rhythm. No murmur gallop or rub. Abdomen: Bowel sounds active. Abdomen is soft without tenderness or mass. Inspection of her back abdomen are unremarkable. Right flank is notable for a wound VAC at about the level of her right iliac crest. She has erythema extending from below this to the mid lateral right thigh. There is a Mepilex dressing approximately in the area of her right greater trochanter. Slight drainage from a small wound is noted there. The other surgical incision on her right thigh appears to be well healed without drainage. Palpation shows no significant tenderness and no palpable fluid collection or fluctuance. Distally she has intact pulses and sensation. Good perfusion. No edema. Const: Vital Signs, click to edit/add: Vital Signs - 24 hr 01/29/22 17:50 01/29/22 17:55 01/29/22 18:00 Temperature 99.2 F Pulse Rate 95 96 Pulse Rate [Bilate ral Radial] Pulse Rate [Pulse Oximeter] 98 Respiratory Rate 20 Blood Pressure Blood Pressure [Ri ght Arm] Blood Pressure [Ri ght Upper Arm] 116/37 L Pulse Oximetry 100 99 99 Oxygen Delivery Me thod Room Air 01/29/22 18:02 01/29/22 18:33 01/29/22 19:20 Temperature Pulse Rate 96 100 Pulse Rate [Bilate ral Radial] Pulse Rate [Pulse Oximeter] Respiratory Rate Blood Pressure 119/59 L 120/48 L Blood Pressure [Ri ght Arm] Blood Pressure [Ri ght Upper Arm] Pulse Oximetry 100 97 Oxygen Delivery Me thod 01/29/22 19:30 01/29/22 19:32 01/29/22 20:02 Temperature Pulse Rate 104 H 102 H Pulse Rate [Bilate ral Radial] Pulse Rate [Pulse Oximeter] Respiratory Rate Blood Pressure 131/61 107/44 L Blood Pressure [Ri ght Arm] Blood Pressure [Ri ght Upper Arm] Pulse Oximetry 98 97 Oxygen Delivery Me thod 01/29/22 23:35 01/29/22 23:35 01/29/22 23:05 Temperature 99.4 F 99.4 F Pulse Rate Pulse Rate [Bilate ral Radial] Pulse Rate [Pulse Oximeter] 106 H 106 H Respiratory Rate 26 H 26 H Blood Pressure Blood Pressure [Ri ght Arm] 139/81 139/81 Blood Pressure [Ri ght Upper Arm] Pulse Oximetry 97 97 97 Oxygen Delivery Me thod Room Air Room Air 01/29/22 23:05 01/30/22 03:30 01/30/22 03:00 Temperature 100.6 F H 100.6 F H Pulse Rate Pulse Rate [Bilate ral Radial] Pulse Rate [Pulse Oximeter] 98 Respiratory Rate 26 H 20 Blood Pressure Blood Pressure [Ri ght Arm] 142/65 H Blood Pressure [Ri ght Upper Arm] Pulse Oximetry 97 98 Oxygen Delivery Me thod Room Air Room Air 01/30/22 07:00 01/30/22 09:42 01/30/22 07:00 Temperature 98.3 F 98.3 F Pulse Rate Pulse Rate [Bilate ral Radial] Pulse Rate [Pulse Oximeter] 90 Respiratory Rate 18 Blood Pressure Blood Pressure [Ri ght Arm] 124/71 Blood Pressure [Ri ght Upper Arm] Pulse Oximetry 100 100 Oxygen Delivery Pr thod Room Air 01/30/22 07:00 01/30/22 07:00 01/30/22 11:00 Temperature 98.3 F Pulse Rate Pulse Rate [Bilate ral Radial] 94 Pulse Rate [Pulse Oximeter] 90 Respiratory Rate 18 18 18 Blood Pressure Blood Pressure [Ri ght Arm] 145/69 H Blood Pressure [Ri ght Upper Arm] Pulse Oximetry 100 100 Oxygen Delivery Me thod Room Air Room Air Hospitalist - H&P: Result Labs Labs: Short CBC 01/29/22 Range/Units 19:08 WBC 13.58 H (4.50-11.00) K/uL Hgb 10.3 L (12.0-16.0) gm/dL Hct 32.2 L (33.0-51.0) % Plt Count 188 (140-440) K/uL BMP 12/03/22 19:08 Sodium 137 Potassium 4.2 Chloride 110 Carbon Dioxide 19 L BUN 24 Creatinine 0.9 Glucose 120 H Calcium 9.8 Liver Function 01/29/22 Range/Units 19:08 Total Bilirubin 0.6 (0.1-1.5) mg/dL AST 22 (12-35) U/L ALT 19 (4-35) U/L Alkaline Phosphatase 96 (40-150) U/L Albumin 4.1 (3.3-5.0) g/dL Assessment and Plan Assessment and plan (1) Cellulitis: Problem comment: Patient appears to have a cellulitis primarily centered on area around and below the greater trochanter on the right hip. The area femur it does extend up to the border of the wound VAC but is less intense there. The wound VAC also is not having significant drainage. CT scan does not show a drainable fluid collection in this area. Imaging the CT does not extend down to mid thigh so ultrasound will be obtained. She has a history of Proteus mirabilis infection 2 months ago so will switch antibiotic to ertapenem plus vancomycin pending further evaluation. Consult surgery. Status: Acute (2) Obesity: Status: Acute (3) Hypertension: Status: Acute (4) Anemia: Status: Acute Plan Hospitalized for IV antibiotics, surgical consultation, appropriate wound care, monitoring of mental status. Total time spent today is 75 minutes, 50 minutes in coordination of care discussing with patient and other providers ongoing evaluation management of cellulitis, wound VAC.
--- NOTE | 2022-01-30 19:12 | PC.NURSE ---
Nursing Care Hours: [id number] Pt this shift calm and cooperative. Alert and oriented. SB assist in room , walker and gait belt in halls. No c/o pain but did mention she felt a sharp pain in the area of infection while walking in the soni with PT, but has not felt anything since. Sales Management Intern attempted to get wound drainage culture from wound on R thigh distal to wound sponge. No drainage present. Mepilex changed. Redness receding from outline around cellulites by half and inch in most areas. End of shift, pt reported she noticed redness coming back. Sales Management Intern observed affected area and noted that redness is now about quarter of an inch away from line and some areas are going pass the line. Updated NOC nurse in report.
[2022-01-30] MEDS: ENOXAPARIN 40 MG/0.4 ML INJ SUBCUT (21:02)
[2022-01-30] MEDS: PHENobarbitaL 32.4 MG TABLET 129.6 MG PO (21:03)
[2022-01-31 03:00] VITALS: BP 125/73; PULSE 85; RESP 18; TEMP 37.1; O2SAT 98
--- NOTE | 2022-01-31 06:06 | PC.NURSE ---
END OF SHIFT NOTE: PT IS PLEASANT AND COOPERATIVE. AMBULATES WITHIN ROOM INDEPENDENTLY/SBA. VSS ON RA. PT DENIES CP, SOB, N/V. PT HAD ELEVATED ORAL TEMP OF 100.3 F THAT WAS RELIEVED WITH ADMINISTRATION OF TYLENOL. REDNESS TO RIGHT THIGH EXCEEDED PREVIOUSLY MARKED LINE IN A FEW AREAS; UPDATED; NO NEW ORDERS. WOUND VAC DRESSING REINFORCED WITH TEGADERM.
[2022-01-31] MEDS: ACETAMINOPHEN 325 MG TABLET PO (06:21)
[2022-01-31 08:00] VITALS: BP 139/77; PULSE 91; RESP 12; TEMP 37.1; O2SAT 95
--- NOTE | 2022-01-31 08:29 | CRLHL7_ITS ---
For Patients: As a result of the Century Cures Act, medical imaging exams and procedure reports are released immediately into your electronic medical record. You may view this report before your referring provider. If you have questions, please contact your health care provider. INDICATION: Subcutaneous infection TECHNIQUE: Ultrasound-guided cyst aspiration x2 FINDINGS/PROCEDURE: The benefits and risks of the procedure were explained to the patient and all questions were answered. Written informed consent obtained. Time-out performed. The skin about the right proximal thigh posteriorly was prepped and draped in the usual sterile fashion. 1 percent lidocaine used for local anesthesia. Using ultrasound guidance, fluid aspiration attempted at 2 different sites corresponding to the areas of concern based on prior ultrasound 01/30/2022. Despite numerous attempts, only a small amount of serosanguineous fluid was aspirated. Nevertheless, this was sent to the lab in 2 separate containers to evaluate for possible residual infection. No complications occurred. The 3rd site described on the prior ultrasound did not contain any fluid on the current exam. The patient was sent back to her hospital bed in good condition. IMPRESSION: Ultrasound-guided aspiration x2 regarding the soft tissues of the right proximal posterior thigh region with a small amount of fluid sent to the lab from 2 different sites. Dictated by Jonn Conway MD @ 02/01/2022 10:40:25 AM (Electronically Signed)
[2022-01-31] MEDS: TRAMADOL HCL 50 MG TABLET PO (08:34)
--- NOTE | 2022-01-31 08:37 | PM.GSCN ---
History of Present Illness Consult details Date Seen: 01/31/22 Consult date: 01/31/22 Narrative: 61-year-old female was admitted to the hospital with right hip cellulitis and I was asked by Dr. Hess to see her in consultation. Patient has been treated in Wound colonic for a large right hip/ buttocks surgical wound that was debrided many weeks ago. She has been managed with a wound VAC. On Monday her wound VAC was changed and her skin was normal in appearance. This was per Description of patient's home health nurse. On Monday patient was goofy. Her family members noted that she was not acting herself and in the afternoon they called the ambulance. Patient denies any fevers. Patient was brought to the emergency room. She was found to have an elevated WBC. She also was noted to have cellulitis in the superior lateral hip and thigh. Her VAC had suction on and there was not a lot of redness noticed around the posterior portion of the incision. Patient then had an ultrasound of the cellulitic area that showed 3 simple fluid collections that could represent abscesses. Review of Systems Narrative: General: no fevers HENT: no problems swallowing CV: no shortness of breath Resp: no cough GI: No nausea, vomiting, abdominal pain : no dysuria, no increased urinary frequency, no hematuria Skin: See above Musculoskeletal: no back pain Neuro: no muscle weakness Psyche: no depression, no anxiety PFSH PFSH Medical History Acute kidney injury H/O drainage of abscess Hypertension Rhabdomyolysis Seizure disorder Unspecified open wound, right hip, initial encounter Surgical History H/O: myomectomy Hx of cholecystectomy S/P surgical removal of pilonidal cyst Family History Father Lymphoma Renal cancer Brother Melanoma Social History Narrative: The patient does not smoke. She does not drink alcohol. She was living independently prior to her fall in August. She was in a hospital or TCU until the end of September. Since then she has been living with her sister in [place]. She reports this is going well for her. Code status is full. Highest level of school completed/degree received: some college, no degree Smoking Status: Never smoker Do you use any of these nicotine containing products: None Second hand tobacco smoke exposure: No How often do you have a drink containing alcohol: monthly or less AUDIT-C Alcohol total score: 1 Non-prescribed substance use: denies use Caffeine: Yes (COFFEE 4 CUP DAILY) Are you using contraception or practicing any form of control: No service: No Meds Home Medications and Allergies Home Medications Medication Instructions Recorded Confirmed Type calcium carbonate 600 mg calcium 600 mg PO DAILY 11/25/21 01/30/22 History (1,500 mg) tablet (Calcium) cetirizine 10 mg tablet 10 mg PO DAILY 11/25/21 01/30/22 History cholecalciferol (vitamin D3) 50 50 mcg PO DAILY 11/25/21 01/30/22 History mcg (2,000 unit) capsule multivitamin 1 tab PO DAILY 11/25/21 01/30/22 History phenobarbital 64.8 mg tablet 64.8 mg PO QAM 11/25/21 01/29/22 History phenobarbital 64.8 mg tablet 129.6 mg PO HS 11/25/21 01/30/22 History lisinopril 5 mg tablet 5 mg PO DAILY 01/29/22 01/30/22 History Allergies Allergy/AdvReac Type Severity Reaction Status Date / Time amoxicillin [From Augmentin] Allergy Verified 01/29/22 17:56 clavulanic acid Allergy Verified 01/29/22 17:56 [From Augmentin] lamotrigine [From Lamictal] Allergy Verified 01/29/22 17:56 phenytoin [From Dilantin] Allergy Verified 01/29/22 17:56 Exam Narrative: Exam Narrative: General appearance: Alert, cooperative, and in no distress Pulmonary: Chest symmetric, breathing is nonlabored Gastrointestinal Abdominal: soft, not distended Right hip: Over the right inferior buttocks, right hip, and extending into the right thigh there is a healed surgical incision. The superior part of the incision has a VAC on. The mid part of the incision is covered by Mepilex which was removed. This has a 1.4 cm in length invaginated healing wound that is approximately 2 mm deep and 1 mm wide. No purulence was noted. The inferior part of the incision is completely closed. There is definite cellulitis noted with marker outlining the area of cellulitis. The cellulitis is within the marker and did not extend beyond. The VAC in the superior portion of the incision was removed. A single spot image was removed from the open wound. Good granulation tissue was noted to be inside the wound. There was no evidence of purulence of fibrinous exudate. A new VAC sponge was placed and good suction was seen from the VAC. Psychiatric: Alert, cooperative, normal affect. Const: Vital Signs, click to edit/add: Vital Signs - 24 hr 01/30/22 09:42 01/30/22 11:00 01/30/22 15:00 Temperature 98.3 F 98.3 F Pulse Rate [Bilate ral Radial] 94 Pulse Rate [Pulse Oximeter] Respiratory Rate 18 Blood Pressure [Ri ght Arm] 145/69 H Pulse Oximetry 100 99 Oxygen Delivery Id thod Room Air 01/30/22 15:00 01/30/22 15:00 01/30/22 15:00 Temperature 98.7 F Pulse Rate [Bilate ral Radial] 97 Pulse Rate [Pulse Oximeter] 97 99 Respiratory Rate 18 18 18 Blood Pressure [Ri ght Arm] 147/67 H Pulse Oximetry 99 99 Oxygen Delivery Id thod Room Air Room Air 01/30/22 21:01 01/30/22 23:55 01/30/22 20:55 Temperature 100.3 F H 98.3 F 100.3 F H Pulse Rate [Bilate ral Radial] 100 Pulse Rate [Pulse Oximeter] 102 H Respiratory Rate 20 Blood Pressure [Ri ght Arm] 148/68 H Pulse Oximetry 98 Oxygen Delivery Id thod Room Air 01/30/22 23:00 01/30/22 23:00 01/30/22 23:00 Temperature Pulse Rate [Bilate ral Radial] Pulse Rate [Pulse Oximeter] 96 Respiratory Rate 18 18 Blood Pressure [Ri ght Arm] Pulse Oximetry 98 97 Oxygen Delivery Id thod Room Air 01/30/22 23:00 01/31/22 03:00 Temperature 98.3 F 98.8 F Pulse Rate [Bilate ral Radial] Pulse Rate [Pulse Oximeter] 96 85 Respiratory Rate 18 18 Blood Pressure [Ri ght Arm] 130/82 125/73 Pulse Oximetry 97 98 Oxygen Delivery Id thod Room Air Room Air Results Labs Labs: All other labs normal. Assessment and Plan Assessment and plan (1) Cellulitis: Status: Acute Plan 61-year-old female admitted to the hospital with cellulitis surrounding a previously drained wound that was healing by secondary intention. I discussed with the patient and the hospitalist that patient has those 3 simple appearing fluid collections that could be an early abscess and could be the source of her cellulitis. Patient is currently treated with IV antibiotics, which I would recommend to continue. We also discussed with radiology to perform ultrasound drainage of those fluid collections. This will be done hopefully today. Patient's cellulitis is controlled with IV antibiotics. She will need to be discharged home on p.o. antibiotics.
[2022-01-31] MEDS: lisinopriL 5 MG TABLET PO (08:56)
[2022-01-31] MEDS: PHENobarbitaL 32.4 MG TABLET 64.8 MG PO (08:56)
[2022-01-31] MEDS: ERTAPENEM 1 GM in 0.9 % SODIUM CHLORIDE Mini-bag 100 ML IVPB (08:57)
[2022-01-31] MEDS: CETIRIZINE HCL 10 MG TABLET PO (09:17)
[2022-01-31] MEDS: ONDANSETRON 2 MG/ML inj 4 MG IVP (10:36)
[2022-01-31 13:15] VITALS: BP 134/78; PULSE 89; RESP 18; TEMP 37.2; O2SAT 96
[2022-01-31 15:00] VITALS: BP 165/76; PULSE 80; PULSE 98; RESP 20; TEMP 36.8; O2SAT 98
--- NOTE | 2022-01-31 15:59 | PC.NURSE ---
Alert and oriented x4, afebrile, cellulitis to right buttock and thigh outlined, red and warm to touch but has not spread from outline. Wound vac dressing changed by Dr. Feldman and patient connected to the hospital's wound vac. Dr. Feldman stated patient can be connected back to her wound vac on discharge. Patient's sister brought in new canister for her home wound vac. Ind but needs assist carrying wound vac.
--- NOTE | 2022-01-31 18:48 | PM.IMPN1 ---
Progress Note: A&P Assessment and plan (1) Cellulitis: Status: Acute (2) Abscess of right buttock: Problem details: Status post percutaneous drainage January 31 Status: Acute Plan Continue IV antibiotics. Await culture and clinical course for further decision about treatment plan Time Spent With Patient Total time spent: Total time spent today is 25 minutes, 15 minutes in coordination of care and discussing with patient other providers management of abscess and cellulitis Subjective Date Seen: 01/31/22 Interval history: 61-year-old female seen in followup of right hip and buttock abscess and cellulitis. Today she underwent percutaneous drainage of small abscesses. Amount of purulent fluid was obtained and sent for culture. Wound VAC was changed by Dr. Feldman as well. Patient reports generally doing well. No new complaints. Exam Narrative: Exam Narrative: Wound VAC is now much smaller than yesterday. That wound is quite size small with minimal erythema around it. Below that and her right buttock there is a bandage where she had the percutaneous drainage today. Is more erythema there. There is also a scar over greater trochanter which is well healed and not draining. Erythema extends primarily from the puncture site in her right buttock down toward her mid thigh and is about the same as it was yesterday in area and intensity Const: Vital Signs, click to edit/add: Vital Signs - 24 hr 01/30/22 21:01 01/30/22 23:55 01/30/22 20:55 Temperature 100.3 F H 98.3 F 100.3 F H Pulse Rate [Bilate ral Radial] 100 Pulse Rate [Pulse Oximeter] 102 H Respiratory Rate 20 Blood Pressure [Ri ght Arm] 148/68 H Pulse Oximetry 98 Oxygen Delivery Me thod Room Air 01/30/22 23:00 01/30/22 23:00 01/30/22 23:00 Temperature Pulse Rate [Bilate ral Radial] Pulse Rate [Pulse Oximeter] 96 Respiratory Rate 18 18 Blood Pressure [Ri ght Arm] Pulse Oximetry 98 97 Oxygen Delivery Me thod Room Air 01/30/22 23:00 01/31/22 03:00 01/31/22 08:00 Temperature 98.3 F 98.8 F Pulse Rate [Bilate ral Radial] Pulse Rate [Pulse Oximeter] 96 85 Respiratory Rate 18 18 Blood Pressure [Ri ght Arm] 130/82 125/73 Pulse Oximetry 97 98 95 Oxygen Delivery Me thod Room Air Room Air 01/31/22 08:00 01/31/22 08:00 01/31/22 08:00 Temperature 98.7 F Pulse Rate [Bilate ral Radial] Pulse Rate [Pulse Oximeter] 91 91 Respiratory Rate 12 12 12 Blood Pressure [Ri ght Arm] 139/77 Pulse Oximetry 95 95 Oxygen Delivery Me thod Room Air Room Air 01/31/22 13:15 01/31/22 15:00 01/31/22 15:00 Temperature 99 F Pulse Rate [Bilate ral Radial] Pulse Rate [Pulse Oximeter] 89 98 Respiratory Rate 18 20 Blood Pressure [Ri ght Arm] 134/78 Pulse Oximetry 96 98 Oxygen Delivery Me thod Room Air 01/31/22 15:00 01/31/22 15:00 Temperature 98.2 F Pulse Rate [Bilate ral Radial] Pulse Rate [Pulse Oximeter] 80 Respiratory Rate 20 20 Blood Pressure [Ri ght Arm] 165/76 H Pulse Oximetry 98 98 Oxygen Delivery Me thod Room Air Room Air Documenting provider has reviewed patient's vital signs: yes
[2022-01-31 19:00] VITALS: BP 140/75; PULSE 81; RESP 22; TEMP 36.9; O2SAT 97
[2022-01-31] MEDS: ENOXAPARIN 40 MG/0.4 ML INJ SUBCUT (20:50)
[2022-01-31] MEDS: PHENobarbitaL 32.4 MG TABLET 129.6 MG PO (20:50)
[2022-01-31] MEDS: 0.9 % SODIUM CHLORIDE 250 ml IV (22:01)
--- NOTE | 2022-01-31 22:34 | PC.NURSE ---
End of Shift: Patient pleasant and cooperative. Patient vitally stable, lung clear, BS WNL, IV currently running vancomycin. Patient SBA with vac machine. Four-wheel walker used to place vacuum on seat rather than carry. Patient rated pain at most 2/10, patient declined any pain medication. Right thigh/buttock wound C/D/I, vacuum suctioning, area is reddened and warm, and staying within outlined area. Patient tolerating regular diet and urinating.
[2022-01-31 23:00] VITALS: BP 160/85; PULSE 91; RESP 20; TEMP 37.2; O2SAT 98
[2022-02-01] VITALS (7 sets, daily range): BP systolic 121–172; BP diastolic 61–81; PULSE 77–90; RESP 16–20; TEMP 36.8–37.1; O2SAT 95–97
--- NOTE | 2022-02-01 07:05 | PC.NURSE ---
END OF SHIFT NOTE: PT PLEASANT AND COOPERATIVE WITH CARES. PT AMBULATES WITH WALKER WITHIN ROOM D/T WOUND VAC MACHINE. VSS ON RA. CELLULITIS WITHIN BORDERED REGIONS. UNEVENTFUL NIGHT.,
[2022-02-01] MEDS: PHENobarbitaL 32.4 MG TABLET 64.8 MG PO (08:43)
[2022-02-01] MEDS: CETIRIZINE HCL 10 MG TABLET PO (08:43)
[2022-02-01] MEDS: CALCIUM CARBONATE 500 MG TABLET PO (08:43)
[2022-02-01] MEDS: MULTIVITAMIN/MINERALS 1 TABLET 1 TAB PO (08:43)
[2022-02-01] MEDS: lisinopriL 5 MG TABLET PO (08:43)
[2022-02-01] MEDS: ERTAPENEM 1 GM in 0.9 % SODIUM CHLORIDE Mini-bag 100 ML IVPB (08:44)
[2022-02-01 09:22] LABS: Basophils Absolute Auto 0.03 K/uL (0.00-0.30); Basophils Percent Auto 0.6 % (0.0-3.0); Eosinophils Absolute Auto 0.32 K/uL (0.00-0.50); Eosinophils Percent Auto 6.8 % (0.0-7.0); Hematocrit 28.5 % (33.0-51.0); Hemoglobin* 9.2 gm/dL (12.0-16.0); Immature Granulocytes Abs Auto 0.01 K/uL (0.00-0.30); Immature Granulocytes Pct Auto 0.2 %; Mean Corpuscular HGB Conc 32 gm/dL (32-36); Mean Corpuscular Hemoglobin 31 pg (26-34); Mean Corpuscular Volume 96 fL (80-100); Monocytes Percent Auto 7.7 % (0.0-11.0); Neutrophils Absolute Auto 3.22 K/uL (1.7-7.0); Neutrophils Percent Auto 68.7 % (42.0-72.0); Platelet Count* 205 K/uL (140-440); RDW Coefficient of Variation % 13.4 % (11.5-15.5); Red Blood Count 2.96 m/uL (4.00-5.20); White Blood Count* 4.69 K/uL (4.50-11.00)
[2022-02-01 09:31] LABS: Chloride* 110 mmol/L (96-114); Slide Review Reflex No; Sodium* 139 mmol/L (135-149)
[2022-02-01 09:32] LABS: Potassium* 3.3 mmol/L (3.6-5.1)
[2022-02-01 09:34] LABS: Creatinine* 0.7 mg/dL (0.5-1.5); Est. Creatinine Clearance* 56.72; Estimated Glomerular Filt Rate 98 ml/min
[2022-02-01 09:35] LABS: Blood Urea Nitrogen* 13 mg/dL (7-30); Calcium* 9.4 mg/dL (8.4-10.6); Carbon Dioxide* 24 mmol/L (20-32); Glucose* 94 mg/dL (60-115)
[2022-02-01 09:50] LABS: C Reactive Protein* 13.5 mg/dL (0.5-1.0)
--- NOTE | 2022-02-01 11:19 | PM.IMPN1 ---
Progress Note: A&P Assessment and plan (1) Cellulitis: Status: Acute (2) Abscess of right buttock: Problem details: Status post percutaneous drainage January 31 Status: Acute (3) Antibiotic-resistant bacterial infection: Problem details: Proteus mirabilis resistant to most antibiotics except ertapenem, cefoxitin, piperacillin tazobactam Status: Acute Plan Continue in hospital for IV antibiotics, monitoring for clinical improvement, culture results. Time Spent With Patient Total time spent: Total time spent today is 25 minutes, 15 minutes in coordination of care and discussing with patient and other providers management of cellulitis and abscess Subjective Date Seen: 02/01/22 Interval history: 61-year-old female seen in followup of hip cellulitis and abscess. She reports generally feeling well today she is not aware of any fever. No shortness of breath. She has been eating normally. She has got good mobility and limitations with ambulation. She had needle drainage of hip abscess yesterday. Cultures pending. Culture from 2 days ago from this wound surface growing the same Proteus mirabilis that she had 2 months ago. Sensitive to ertapenem, piperacillin tazobactam and cefoxitin but resistant to most other antibiotics. Exam Narrative: Exam Narrative: She is alert appears in no distress. Hip is examined. The extent of the erythema is similar to previous. Modestly less intense. Area around the wound VAC has minimal erythema. The right buttock wound has increased erythema with some tenderness. The distal hip incision is well-healed without tenderness. Distally she has intact pulses and sensation. No edema. Const: Vital Signs, click to edit/add: Vital Signs - 24 hr 01/31/22 13:15 01/31/22 15:00 01/31/22 15:00 Temperature 99 F Pulse Rate [Pulse Oximeter] 89 98 Respiratory Rate 18 20 Blood Pressure [Ri ght Arm] 134/78 Pulse Oximetry 96 98 Oxygen Delivery Me thod Room Air 01/31/22 15:00 01/31/22 15:00 01/31/22 19:00 Temperature 98.2 F 98.4 F Pulse Rate [Pulse Oximeter] 80 81 Respiratory Rate 20 20 22 Blood Pressure [Ri ght Arm] 165/76 H 140/75 H Pulse Oximetry 98 98 97 Oxygen Delivery Me thod Room Air Room Air Room Air 01/31/22 23:00 01/31/22 23:00 01/31/22 23:00 Temperature Pulse Rate [Pulse Oximeter] 91 Respiratory Rate 20 20 Blood Pressure [Ri ght Arm] Pulse Oximetry 98 98 Oxygen Delivery Me thod Room Air 01/31/22 23:00 02/01/22 03:00 02/01/22 08:00 Temperature 99.0 F 98.7 F Pulse Rate [Pulse Oximeter] 91 86 Respiratory Rate 20 18 Blood Pressure [Ri ght Arm] 160/85 H 142/75 H Pulse Oximetry 98 95 97 Oxygen Delivery Me thod Room Air Room Air 02/01/22 08:00 02/01/22 08:00 02/01/22 08:04 Temperature 98.4 F Pulse Rate [Pulse Oximeter] 86 86 Respiratory Rate 20 20 20 Blood Pressure [Ri ght Arm] 150/73 H Pulse Oximetry 97 97 Oxygen Delivery Me thod Room Air Room Air Documenting provider has reviewed patient's vital signs: yes Labs Labs: Laboratory Results - last 24 hr 02/01/22 02/01/22 08:43 08:43 WBC 4.69 RBC 2.96 L Hgb 9.2 L Hct 28.5 L MCV 96 MCH 31 MCHC 32 RDW Coeff of [place]slan 13.4 Plt Count 205 Neut % (Auto) 68.7 Lymph % (Auto) 16.0 L [place] % (Auto) 7.7 Eos % (Auto) 6.8 Baso % (Auto) 0.6 Neut # (Auto) 3.22 Lymph # (Auto) 0.80 L [place] # (Auto) 0.40 Eos # (Auto) 0.32 Baso # (Auto) 0.03 Abs Immat Gran (auto) 0.01 Imm/Tot Granulo (auto) 0.2 Sodium 139 Potassium 3.3 L Chloride 110 Carbon Dioxide 24 BUN 13 Creatinine 0.7 Estimated Creat Clear 56.72 Estimated GFR 98 Glucose 94 Calcium 9.4 C-Reactive Protein 13.5 H
--- NOTE | 2022-02-01 14:00 | PM.GSPN ---
Subjective Subjective Date Seen: 02/01/22 Interval history: Patient is doing well. She only describes soreness at her incision. Her back has been working. She underwent ultrasound guided drainage of her fluid collections with only small amount of fluid aspirated. The fluid was sent for culture. Exam Narrative: Exam Narrative: Right hip: The back is in place and working. The area of erythema is within the markings. Const: Vital Signs, click to edit/add: Vital Signs - 24 hr 01/31/22 15:00 01/31/22 15:00 01/31/22 15:00 Temperature Pulse Rate [Pulse Oximeter] 98 Respiratory Rate 20 20 Blood Pressure [Ri ght Arm] Pulse Oximetry 98 98 Oxygen Delivery Me thod Room Air 01/31/22 15:00 01/31/22 19:00 01/31/22 23:00 Temperature 98.2 F 98.4 F Pulse Rate [Pulse Oximeter] 80 81 Respiratory Rate 20 22 Blood Pressure [Ri ght Arm] 165/76 H 140/75 H Pulse Oximetry 98 97 98 Oxygen Delivery Me thod Room Air Room Air 01/31/22 23:00 01/31/22 23:00 01/31/22 23:00 Temperature 99.0 F Pulse Rate [Pulse Oximeter] 91 91 Respiratory Rate 20 20 20 Blood Pressure [Ri ght Arm] 160/85 H Pulse Oximetry 98 98 Oxygen Delivery Me thod Room Air Room Air 02/01/22 03:00 02/01/22 08:00 02/01/22 08:00 Temperature 98.7 F Pulse Rate [Pulse Oximeter] 86 Respiratory Rate 18 20 Blood Pressure [Ri ght Arm] 142/75 H Pulse Oximetry 95 97 97 Oxygen Delivery Nh thod Room Air Room Air 02/01/22 08:00 02/01/22 08:04 02/01/22 10:50 Temperature 98.4 F 98.4 F Pulse Rate [Pulse Oximeter] 86 86 84 Respiratory Rate 20 20 16 Blood Pressure [Ri ght Arm] 150/73 H 136/61 Pulse Oximetry 97 97 Oxygen Delivery Nh thod Room Air Room Air 02/01/22 10:50 Temperature 98.4 F Pulse Rate [Pulse Oximeter] 84 Respiratory Rate 16 Blood Pressure [Ri ght Arm] 136/61 Pulse Oximetry 97 Oxygen Delivery Nh thod Room Air Progress Note: A&P Assessment and plan (1) Cellulitis: Status: Acute Assessment and Plan: 61-year-old female admitted to the hospital with cellulitis of the right thigh and hip wound that has been healing by secondary intention. Patient's wound culture grew Proteus. She continues to be antibiotics. Her subcutaneous fluid collections were aspirated but only small amount of fluid came out. This was sent for culture. Her WBC is normal today. Will wait for culture results from aspirated fluid. Patient will most likely need IV antibiotics. PICC line has been arranged by the hospitalist.
--- NOTE | 2022-02-01 15:59 | PC.NURSE ---
End of Shift, Pt is very pleasant and cooperative. she had a VELA this am and got coffee and VELA did improve. SL is patent with IV antibiotics infusing. Pt is up with SBA vac machine unhooked when pt is up to the Br. she is up with 1 assist and a walker. Right thigh/buttock wound C/D/I, vacuum suctioning,@ 125mm. area is reddened and warm, and staying within outlined area. Patient tolerating regular diet. she is eating, drinking and voiding.
[2022-02-01] MEDS: ENOXAPARIN 40 MG/0.4 ML INJ SUBCUT (21:26)
[2022-02-01] MEDS: PHENobarbitaL 32.4 MG TABLET 129.6 MG PO (21:26)
[2022-02-02 03:00] VITALS: RESP 16
--- NOTE | 2022-02-02 05:11 | PC.NURSE ---
patient up ad bi, minimal pain reported. appears to have slept majority of the night. wound vac in place and functioning.
[2022-02-02 07:30] VITALS: BP 146/76; PULSE 85; PULSE 97; RESP 20; TEMP 37; O2SAT 97
[2022-02-02] MEDS: ERTAPENEM 1 GM in 0.9 % SODIUM CHLORIDE Mini-bag 100 ML IVPB (08:15)
--- NOTE | 2022-02-02 08:27 | CRLHL7_ITS ---
For Patients: As a result of the Century Cures Act, medical imaging exams and procedure reports are released immediately into your electronic medical record. You may view this report before your referring provider. If you have questions, please contact your health care provider. Indication: PICC placement Technique: Grayscale ultrasound images of the right basilic vein and right internal jugular vein submitted. IMPRESSION: Ultrasound guidance for right arm PICC line placement. Dictated by Jonn Conway MD @ 02/04/2022 11:16:07 AM (Electronically Signed)
--- NOTE | 2022-02-02 08:27 | CRLHL7_ITS ---
For Patients: As a result of the Century Cures Act, medical imaging exams and procedure reports are released immediately into your electronic medical record. You may view this report before your referring provider. If you have questions, please contact your health care provider. INDICATION: PICC placement. TECHNIQUE: Chest 2 views. COMPARISON: Chest x-ray from 01/29/2022. FINDINGS: Lines and tubes: Right approach PICC. The tip is not well seen due to superimposed soft tissues, but is near the atrial caval junction. Lungs: Linear opacity in the left lower lobe is likely scarring. No consolidation. Pleura: No pleural effusion or pneumothorax. Heart and Mediastinum: The cardiomediastinal silhouette is normal. The vessels are unremarkable. Bones: Unremarkable. IMPRESSION: No acute cardiopulmonary disease. Dictated by Luis Armando Morin MD @ 02/02/2022 7:05:26 PM (Electronically Signed)
[2022-02-02] MEDS: TRAMADOL HCL 50 MG TABLET PO (08:38)
[2022-02-02] MEDS: CETIRIZINE HCL 10 MG TABLET PO (09:33)
[2022-02-02] MEDS: CALCIUM CARBONATE 500 MG TABLET PO (09:33)
[2022-02-02] MEDS: ACETAMINOPHEN 325 MG TABLET PO (09:35)
[2022-02-02] MEDS: PHENobarbitaL 32.4 MG TABLET 64.8 MG PO (09:38)
[2022-02-02] MEDS: lisinopriL 5 MG TABLET PO (09:38)
[2022-02-02] MEDS: MULTIVITAMIN/MINERALS 1 TABLET 1 TAB PO (09:39)
[2022-02-02 11:00] VITALS: BP 145/87; PULSE 81; PULSE 96; RESP 20; TEMP 36.9; O2SAT 96
--- NOTE | 2022-02-02 13:13 | P.DS_ITS ---
DS: Providers Provider Date Seen: 02/02/22 Date of admission: 01/30/22 09:57 Primary care physician: Judy Chaves Generic Admitting Clinician: Darin Wells MD Consults: Consult Dr. Feldman and Dr. Conway.. Attending Physician on discharge: Nate Hess MD Date of Discharge: 02/02/22 DS: Diagnosis Discharge Diagnosis (1) Antibiotic-resistant bacterial infection: Status: Acute Problem details: Proteus mirabilis resistant to most antibiotics except ertapenem, cefoxitin, piperacillin tazobactam (2) Abscess of right buttock: Status: Acute Problem details: Status post percutaneous drainage January 31 (3) Cellulitis: Status: Acute DS: Summary Hospital Course Hospital Course: 61-year-old female with history of right hip and buttock abscess and cellulitis admitted through the emergency department with an episode of acute confusion at home. Patient was generally doing well managing her chronic infection and wound in her right hip and flank until the day prior to admission when she developed confusion. Further evaluation showed that she had a large area of cellulitis i nvolving the right hip extending down about prison down her lateral thigh on the right. Patient has had problems with this back to August when she had a prolonged hospital stay and surgery for a large wound. This is been managed through the [facility] and generally getting better until the day before admission. She has a chronic wound VAC in place. In the hospital she had blood cultures obtained and these are negative. She had a superficial wound culture from a right buttock lesion that was draining a small amount of fluid. This was felt to be in the middle of the area of maximum erythema. She then had interventional radiology guided drainage of small abscesses subcutaneous to that area. Cultures from that are negative so far. She was empirically treated with vancomycin and ertapenem. Vancomycin for MRSA and ertapenem for history of a highly resistant Proteus mirabilis infection from 2 months ago. Her superficial wound culture grew Proteus mirabilis again. She was seen in consultation by Dr. Feldman. Wound VAC was changed. PICC line will be placed today and she will be discharged on outpatient IV ertapenem for 1 week. Follow up in the Wound Care Clinic next Monday for re- evaluation of her wounds and need for ongoing antibiotics. Status at Discharge Functional status at discharge: independent ambulation Overall status at discharge: patient is progressing back to baseline Time Spent with Patient Time attestation: Total time spent providing and/or coordinating discharge services: Time spent: Greater than 30 minutes Exam Narrative: Exam Narrative: She is alert and appears in no distress. Mood and affect are bright. Breathing is unlabored. Back and right hip and thigh are examined. Erythema is still to the a approximate same extent as it was previously but it is less intense. Most intense around that small draining lesion over her right buttock. The wound VAC is having minimal output and there is not significant erythema around her wound VAC. No other open lesions are noted. Const: Vital Signs, click to edit/add: Vital Signs - 24 hr 02/01/22 16:14 02/01/22 16:14 02/01/22 16:14 Temperature Pulse Rate [Bilate ral Radial] Pulse Rate [Pulse Oximeter] 84 Respiratory Rate 16 16 Blood Pressure [Ri ght Arm] Pulse Oximetry 95 95 Oxygen Delivery Me thod Room Air 02/01/22 16:14 02/01/22 19:07 02/01/22 23:00 Temperature 98.5 F 98.3 F Pulse Rate [Bilate ral Radial] Pulse Rate [Pulse Oximeter] 77 90 Respiratory Rate 16 16 Blood Pressure [Ri ght Arm] 128/76 121/65 Pulse Oximetry 95 95 95 Oxygen Delivery Me thod Room Air Room Air 02/01/22 23:00 02/01/22 23:00 02/01/22 23:00 Temperature 98.5 F Pulse Rate [Bilate ral Radial] 84 Pulse Rate [Pulse Oximeter] 84 Respiratory Rate 16 16 16 Blood Pressure [Ri ght Arm] 172/81 H Pulse Oximetry 95 97 Oxygen Delivery Me thod Room Air Room Air 02/02/22 03:00 Temperature Pulse Rate [Bilate ral Radial] Pulse Rate [Pulse Oximeter] Respiratory Rate 16 Blood Pressure [Ri ght Arm] Pulse Oximetry Oxygen Delivery Me thod Documenting provider has reviewed patient's vital signs: yes DS: Data Data Completed and Pending Labs on day of discharge: Preliminary micro results at discharge 01/31/22 15:00 Body Fluid Culture - Preliminary Perineal Fluid 01/29/22 18:55 Blood Culture - Preliminary Blood NO GROWTH AFTER 72 HOURS 01/29/22 19:08 Blood Culture - Preliminary Blood NO GROWTH AFTER 72 HOURS Discharge Plan Discharge Disposition: Home, Self-Care Date of Admission: 01/30/22 09:57 Attending Provider on Discharge: Nate Hess Consulting Providers: Radha Feldman Primary Care Provider: Judy Adan Provider Condition: Stable Anticipated Discharge Date/Time: 02/02/22 17:00 Discharge Medications: Continued calcium carbonate [Calcium 600] 600 mg calcium (1,500 mg) tablet 600 mg PO DAILY cetirizine 10 mg tablet 10 mg PO DAILY multivitamin Tablet 1 tab PO DAILY phenobarbital 64.8 mg tablet 64.8 mg PO QAM phenobarbital 64.8 mg tablet 129.6 mg PO HS cholecalciferol (vitamin D3) 50 mcg (2,000 unit) capsule 50 mcg PO DAILY lisinopril 5 mg tablet 5 mg PO DAILY Discharge Orders: Discharge Order (Routine); Ordered 02/02/22 Ordered By: Nate Hess Additional Instructions: Return to the hospital once daily for intravenous antibiotics for 1 week. Next Monday go to the [facility] for evaluation. Activity Level: No Restrictions Discharge Diet: Regular Follow Up Appointments: Judy Adan/Madhu Provider [Staff Physician] - 02/03/22 9:00 am ([facility] [phone]) Judy Adan Provider [Primary Care Provider] - 02/09/22 2:00 pm ([facility] [phone]) Forms: [employer] Info Instructions
--- NOTE | 2022-02-02 14:30 | PM.GSPN ---
Subjective Subjective Date Seen: 02/02/22 Interval history: Patient is doing well. No concerns. Her cellulitis is getting better. Exam Narrative: Exam Narrative: Right hip/buttocks: The erythema is significantly improved and is fading. The VAC was changed today. Const: Vital Signs, click to edit/add: Vital Signs - 24 hr 02/01/22 16:14 02/01/22 16:14 02/01/22 16:14 Temperature Pulse Rate [Bilate ral Radial] Pulse Rate [Pulse Oximeter] 84 Respiratory Rate 16 16 Blood Pressure [Ri ght Arm] Pulse Oximetry 95 95 Oxygen Delivery Me thod Room Air 02/01/22 16:14 02/01/22 19:07 02/01/22 23:00 Temperature 98.5 F 98.3 F Pulse Rate [Bilate ral Radial] Pulse Rate [Pulse Oximeter] 77 90 Respiratory Rate 16 16 Blood Pressure [Ri ght Arm] 128/76 121/65 Pulse Oximetry 95 95 95 Oxygen Delivery Me thod Room Air Room Air 02/01/22 23:00 02/01/22 23:00 02/01/22 23:00 Temperature 98.5 F Pulse Rate [Bilate ral Radial] 84 Pulse Rate [Pulse Oximeter] 84 Respiratory Rate 16 16 16 Blood Pressure [Ri ght Arm] 172/81 H Pulse Oximetry 95 97 Oxygen Delivery Me thod Room Air Room Air 02/02/22 03:00 02/02/22 07:30 02/02/22 07:30 Temperature Pulse Rate [Bilate ral Radial] Pulse Rate [Pulse Oximeter] Respiratory Rate 16 Blood Pressure [Ri ght Arm] Pulse Oximetry 97 97 Oxygen Delivery Me thod Room Air 02/02/22 07:30 02/02/22 11:00 Temperature 98.6 F 98.4 F Pulse Rate [Bilate ral Radial] 85 81 Pulse Rate [Pulse Oximeter] 97 96 Respiratory Rate 20 20 Blood Pressure [Ri ght Arm] 146/76 H 145/87 H Pulse Oximetry 97 96 Oxygen Delivery Me thod Room Air Room Air Progress Note: A&P Assessment and plan (1) Cellulitis: Status: Acute Assessment and Plan: 61-year-old female admitted to the hospital with cellulitis of the right hip/buttocks wound. Patient's cellulitis is improving with IV antibiotics. She will discharge home with PICC line and IV antibiotics. Her VAC was changed today. She will resume her wound care with home health nurse on Monday. She will follow up with wound clinic next week.
--- NOTE | 2022-02-02 14:35 | PC.SOCIAL ---
Discharge planning- met with pt in pt's room. Discussed with pt the referral that was sent to the [facility] for pt to receive her IV antibiotics for the next week. Pt has a ride from pt's sister to get to the hospital one time a day for the next week to get her IV antibiotics. Pt is fine with traveling to the [facility]. Provided update to charge nurse. Charge nurse [facility] at [facility]. Social Work will follow up as necessary.
[2022-02-02 15:00] VITALS: BP 142/91; PULSE 78; PULSE 95; RESP 18; TEMP 36.8; O2SAT 95
--- NOTE | 2022-02-02 15:30 | PC.NURSE ---
Pt had a mild h/a 2 of 10 at onset of shift. The wound site doesn't really hurt or bother me per pt. UAL. Eupneic and in NAD. Pt's wound vac changed to pt's portable version by Dr. Feldman. Plan PICC line placement to be confirmed and followed by d/c instructions for outpatient ATB therapy. Report to Zahira Torres RN for evening shift. IV Ertapenam and IV Vancomycin infused per protocol this am.
--- NOTE | 2022-02-02 19:42 | PC.NURSE ---
Discharge note: pt friendly and cooperative. Independent and knowledgeable with wound vac/care. VSS and LS COA. Rates pain 3/10 and declines PRN medication at this time. PICC placed at bedside and verified with imaging. Pt was discharged to home in the care of her sister at [place]. Pt verbalized understanding of discharge instructions and follow up appointments. Pt will plan to arrive at [facility] for 11am appointment tomorrow 02/03/22.
== END 2022-02-02 19:45 | disposition home or self-care (01) | DRG 603 ==
LOC: ED 22:03 → MEDSURG 22:36
PROVIDERS: Family Medicine; Admitting Provider Internal Medicine; Emergency Provider Family Medicine; Visit Provider Family Medicine
DX: L03.115 Cellulitis of right lower limb (principal); L02.31 Cutaneous abscess of buttock; Z16.24 Resistance to multiple antibiotics; Z68.41 Body mass index [BMI] 40.0-44.9, adult; L02.415 Cutaneous abscess of right lower limb; I10 Essential (primary) hypertension; E66.9 Obesity, unspecified; S71.001A Unspecified open wound, right hip, initial encounter; B96.4 Proteus (mirabilis) (morganii) as the cause of diseases classified elsewhere; G40.909 Epilepsy, unspecified, not intractable, without status epilepticus
CPT/HCPCS: 36415; 36573; 71045; 71260; 72193; 75989; 76882; 80048; 80053; 83605; 83880; 84484; 85025; 85379; 86140; 87040; 87070; 87186; 87502; 87634; 87635; 93970; 94761; 97110; 97116; 97161; 97165; 97535; 99285; A9153; A9270; C1751; G0378; J0690; J0692; J1200; J1335; J1650; J2405; J3370; J7030; J7050; J7120; Q9967

== ENCOUNTER 2022-02-09 14:02 | Outpatient (CLI) | payer MEDICAID, SELFPAY | END 2022-02-09 14:03 | disposition home or self-care (01) | LOC: WOUND 14:03 | PROVIDERS: Visit Provider Surgery | DX: T81.31XA Disruption of external operation (surgical) wound, not elsewhere classified, initial encounter (principal) | CPT/HCPCS: 97605; 99213 ==

== ENCOUNTER 2022-02-16 13:39 | Outpatient (CLI) | payer MEDICAID, SELFPAY | END 2022-02-16 13:40 | disposition home or self-care (01) | LOC: WOUND 13:39 | PROVIDERS: Visit Provider Surgery | DX: T81.31XA Disruption of external operation (surgical) wound, not elsewhere classified, initial encounter (principal); E60 Dietary zinc deficiency | CPT/HCPCS: 11042; 97605 ==

== ENCOUNTER 2022-02-21 13:26 | Outpatient (REF) | payer MEDICAID, SELFPAY ==
[2022-02-21 13:57] LABS: Chloride* 110 mmol/L (96-114); Potassium* 4.5 mmol/L (3.6-5.1); Sodium* 140 mmol/L (135-149)
[2022-02-21 14:00] LABS: Blood Urea Nitrogen* 19 mg/dL (7-30); Creatinine* 0.8 mg/dL (0.5-1.5); Estimated Glomerular Filt Rate 83 ml/min; Glucose* 87 mg/dL (60-115)
[2022-02-21 14:21] LABS: Carbon Dioxide* 24 mmol/L (20-32)
== END 2022-02-21 13:27 | disposition home or self-care (01) ==
LOC: NPINS 13:26
PROVIDERS: Visit Provider Student in an Organized Health Care Education/Training Program
DX: L02.31 Cutaneous abscess of buttock (principal)
CPT/HCPCS: 80048

== ENCOUNTER 2022-02-23 13:42 | Outpatient (CLI) | payer MEDICAID, SELFPAY | END 2022-02-23 13:43 | disposition home or self-care (01) | LOC: WOUND 13:42 | PROVIDERS: Visit Provider Surgery | DX: T81.31XA Disruption of external operation (surgical) wound, not elsewhere classified, initial encounter (principal); E60 Dietary zinc deficiency | CPT/HCPCS: 97597 ==

== ENCOUNTER 2022-03-02 12:33 | Outpatient (CLI) | payer MEDICAID, SELFPAY | END 2022-03-02 12:34 | disposition home or self-care (01) | LOC: WOUND 12:33 | PROVIDERS: Visit Provider Surgery | DX: T81.31XA Disruption of external operation (surgical) wound, not elsewhere classified, initial encounter (principal); E60 Dietary zinc deficiency | CPT/HCPCS: 97597 ==

== ENCOUNTER 2022-03-09 13:35 | Outpatient (CLI) | payer MEDICAID, SELFPAY | END 2022-03-09 13:36 | disposition home or self-care (01) | LOC: WOUND 13:35 | PROVIDERS: Visit Provider Surgery | DX: T81.31XA Disruption of external operation (surgical) wound, not elsewhere classified, initial encounter (principal) | CPT/HCPCS: 99212 ==

== ENCOUNTER 2022-03-16 13:42 | Outpatient (CLI) | payer MEDICAID, SELFPAY | END 2022-03-16 13:43 | disposition home or self-care (01) | LOC: WOUND 13:42 | PROVIDERS: Visit Provider Surgery | DX: T81.31XA Disruption of external operation (surgical) wound, not elsewhere classified, initial encounter (principal) | CPT/HCPCS: 97597 ==

== ENCOUNTER 2022-03-23 13:38 | Outpatient (CLI) | payer MEDICAID, SELFPAY | END 2022-03-23 13:39 | disposition home or self-care (01) | LOC: WOUND 13:38 | PROVIDERS: Visit Provider Surgery | DX: T81.31XA Disruption of external operation (surgical) wound, not elsewhere classified, initial encounter (principal); E60 Dietary zinc deficiency | CPT/HCPCS: 11042 ==

== ENCOUNTER 2022-03-30 13:49 | Outpatient (CLI) | payer MEDICAID, SELFPAY | END 2022-03-30 13:50 | disposition home or self-care (01) | LOC: WOUND 13:49 | PROVIDERS: Visit Provider Surgery | DX: T81.31XA Disruption of external operation (surgical) wound, not elsewhere classified, initial encounter (principal) | CPT/HCPCS: 11042 ==

== ENCOUNTER 2022-04-13 13:44 | Outpatient (CLI) | payer MEDICAID, SELFPAY | END 2022-04-13 13:45 | disposition home or self-care (01) | LOC: WOUND 13:44 | PROVIDERS: Visit Provider Surgery | DX: T81.31XA Disruption of external operation (surgical) wound, not elsewhere classified, initial encounter (principal); E60 Dietary zinc deficiency | CPT/HCPCS: 11042 ==

== ENCOUNTER 2022-04-20 11:53 | Outpatient (CLI) | payer MEDICAID, SELFPAY | END 2022-04-20 11:54 | disposition home or self-care (01) | LOC: WOUND 11:53 | PROVIDERS: Visit Provider Surgery | DX: T81.31XA Disruption of external operation (surgical) wound, not elsewhere classified, initial encounter (principal) | CPT/HCPCS: 99212 ==